=== PATIENT | male | born 1960 | race African-American/Black ===

== ENCOUNTER 2020-08-05 11:50 | Outpatient (CLI) | payer MEDICARE ==
[~2020-08-05 11:50] MED LIST: Magnevist 469MG/ML 20 ML VIAL ONE
--- NOTE | 2020-08-05 14:52 | PET ---
Exam: PET scan with CT attenuation correction HISTORY: Malignant neoplasm of the left upper lobe bronchus. COMPARISON: None. CORRELATION: Soft tissue neck CT 07/10/2020. TECHNIQUE: PET scan with CT attenuation correction is performed from the base of the brain to the pro ximal thighs following the intravenous initiation 11.5 mg of [id number]. FINDINGS: Head and neck: Left neck: There is marked FDG avidity associated with a soft tissue mass identified in the left neck on recent CT. Maximum SUV is 19.6. No additional areas of abnormal FDG localization in the upper to mid left neck, or the right neck. Chest: Hypermetabolic right paratracheal lymph node with a maximum SUV of 12.3. Hypermetabolic anteri or left mediastinal lymph node with a maximum SUV of 9.5. There appears to be marked FDG avidity involving the mid thoracic esophagus with a maximum SUV of 8.9 and 16.5. No abnormal FDG avidity in the axilla. Hypermetabolic activity involving the left upper lobe mass with a maximum SUV of 19.6. Additional hyp ermetabolic nodules in the left lung with a maximum SUV of 10.8, 6.7 and 10.1. Multiple FDG-avid nodules in the right lung. Hypermetabolic nodule in the right upper lobe with a maximum SUV of 7.5. R ight lower lobe with a maximum SUV of 5.3. Abdomen and pelvis: There is a hypermetabolic gastrohepatic lymph node with a maximum SUV of 3.8. Osseous structures: No evidence of abnormal FDG avidity. IMPRESSION: 1. Hypermetabolic left upper lobe mass with extensive intrathoracic and left neck metastases, as desc ribed above. 2. There is FDG avidity along the course of the esophagus. Correlate for a second neoplasm versus eso phagitis. There is a hypermetabolic gastrohepatic lymph node. Transcribed Date/Time: 08/05/2020 4:00 PM
--- NOTE | 2020-08-05 15:16 | MRI ---
MRI BRAIN WITH AND WITHOUT CONTRAST: DATE: 08/05/2020 HISTORY: 59-year-old male with metastatic lung cancer. Staging. COMPARISON: None TECHNIQUE: Multiplanar, multisequence MRI of the brain performed pre- and post-IV injection of gadolinium based contrast agent. FINDINGS: There is patchy hyperintense signal abnormality involving the majority of the volume of the stephen, lenka trally, with relative sparing of the periphery. No associated abnormal enhancement. This is nonspecific, but probably represents moderate to severe chronic ischemic white matter changes due to small vessel disease. There is a curvilinear band of hyperintense signal along the superior posterior edge of the left cere bellar hemisphere close to the tentorium cerebelli and just anterior to the left transverse dural venous sinus. There is no associated abnormal enhancement, no signal abnormality identified on T2 WI, no restricted diffusion, and no hemorrhage associated with this. This is slightly favored to be artifact. Multifocal small and tiny, and patchy T2 and FLAIR hyperintense signal abnormalities in the bilateral periventricular, deep, and subcortical white matter of the cerebrum, consistent with mild to moderate chronic ischemic white matter changes and tiny old white matter lacunar infarctions. A cluster of several very small fluid signal intensity lesions at head of left caudate nucleus and ad jacent portions of left basal ganglia and anterior limb of left internal capsule,, with hemosiderin staining. Multiple few tiny old lacunar infarctions in the bilateral thalami right basal ganglia, right externa l capsule. Small focal signal abnormality at cortex and subcortical white matter with hemosiderin stain, at the left far lateral suprasylvian brain parenchyma representing site of prior hemorrhage, at junction between foraminal and parietal lobes. No enhancing intra-axial lesion to indicate metastatic disease. Ossifications along interhemispheric falx. No obstructive hydrocephalus, mass effect, midline shift, or extra-axial fluid collection. No restricted diffusion. IMPRESSION: 1) no evidence of intracranial metastatic disease. 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 3) small old lacunar infarctions with prior hemorrhagic conversions, versus prior hemorrhagic lesions , at the left corpus striatum. 4) moderate chronic ischemic white matter changes, especially in the stephen. 5) small old hemorrhagic insult in left far lateral cerebrum.
== END 2020-08-05 11:51 | disposition home or self-care (01) ==
LOC: PET 11:50
PROVIDERS: ATTEND Internal Medicine Hematology & Oncology
DX: C34.12 Malignant neoplasm of upper lobe, left bronchus or lung (principal); R59.0 Localized enlarged lymph nodes; R93.3 Abnormal findings on diagnostic imaging of other parts of digestive tract; C79.89 Secondary malignant neoplasm of other specified sites; I63.81 Other cerebral infarction due to occlusion or stenosis of small artery
CPT/HCPCS: 70553; 78815; A9552; A9579

== ENCOUNTER 2020-08-14 07:47 | Outpatient (CLI) | payer MEDICARE ==
[2020-08-14 14:25] LABS: Anion Gap 15 mmol/L (10-20); BUN (Urea Nitrogen) 12 mg/dL (8.4-25.7); Calc. Creatinine Clearance 0 mL/min (70-130); Calcium 10.4 mg/dL (7.8-10.44); Carbon Dioxide 27 mmol/L (22-29); Chloride 102 mmol/L (98-107); Glucose 110 mg/dL (70-105); Potassium 4.6 mmol/L (3.5-5.1); Sodium 139 mmol/L (136-145)
[2020-08-14 14:27] LABS: #Basophils 0.1 10x3/uL (0.0-0.2); #Eosinphils 0.1 10x3/uL (0.0-0.5); #Monocytes 0.7 10x3/uL (0.0-1.1); #Neutrophils 6.3 10x3/uL (1.5-8.4); %Basophils 0.7 % (0.0-2.0); %Eosinophils 1.4 % (0.0-6.0); %Lymphocytes 15.7 % (18.0-47.0); %Monocytes 7.9 % (0.0-10.0); %Neutrophils 73.9 % (40.0-75.0); Mean Corpuscular HGB CONC 29.2 G/DL (32.0-36.0); Mean Corpuscular Hemoglobin 19.3 PG (27.0-33.0); Mean Corpuscular Volume 65.9 fl (80.0-100.0); Mean Platelet Volume 9.3 fl (7.4-10.4); Platelet Count 375 10x3/uL (130-400); RBC Distribution Width 18.6 % (11.5-14.5); Red Blood Cell (RBC) Count 5.19 10x6/uL (4.40-5.80); White Blood Cell (WBC) Count 8.5 10x3/uL (4.5-11.0)
[2020-08-14 14:55] LABS: Anisocytosis SLIGHT = 6-15 cells (100X) (0-5/hpf); Hypochromia MODERATE=16-30 cells (100X) (0-5/hpf); Microcytosis MODERATE=15-30 cells (100X) (0-5/hpf)
[2020-08-14 14:57] LABS: Ovalocytes SLIGHT = 2-5 cells (100X) (0-1/hpf)
[2020-08-14 14:59] LABS: Platelet Morphology Comment Appears Adequate; Reflex for Review?? YES
[2020-08-14 23:47] LABS: SARS-CoV-2 MS2 Positive; SARS-CoV-2 N Gene Negative; SARS-CoV-2 S Gene Negative; SARS-CoV-2 by NAA Not Detected (NotDetected); SARS-CoV-2 orf1ab Negative
== END 2020-08-14 07:48 | disposition home or self-care (01) ==
LOC: LABBT 07:47
PROVIDERS: ATTEND Specialist
DX: Z01.818 Encounter for other preprocedural examination (principal); C34.92 Malignant neoplasm of unspecified part of left bronchus or lung; Z20.828 Contact with and (suspected) exposure to other viral communicable diseases
CPT/HCPCS: 80048; 85025; 93005; U0003; 85060; 87635; 93010

== ENCOUNTER 2020-08-19 05:57 | Day surgery (SDC) | payer MEDICARE ==
[2020-08-18 08:14] VITALS: BMI 19.1
[2020-08-19] MEDS ORDERED: Ketorolac Tromethamine 30 MG/ML VIAL ONE (06:31)
[2020-08-19] MEDS ORDERED: Acetaminophen 500 MG TAB ONE (06:31)
[2020-08-19] MEDS ORDERED: Lidocaine 1% w/Epinephrine 1:100K 20 ML VIAL ONE (06:36)
[2020-08-19] MEDS ORDERED: Bupivacaine 0.25% HCL 30 ML VIAL ONE (06:36)
[2020-08-19] MEDS ORDERED: Fentanyl 100 MCG/2 ML VIAL ONE (07:15)
[2020-08-19] MEDS ORDERED: Midazolam HCl 2 mg/2 ml Vial ONE (07:15)
[2020-08-19] MEDS ORDERED: Propofol 500 MG/50 ML VIAL ONE (07:15)
--- NOTE | 2020-08-19 10:03 | RAD ---
CHEST 1 VIEW: Date: 08/19/2020 INDICATION: History of MediPort placement. COMPARISON: Prior PET/CT dated 08/05/2020. FINDINGS: There are bilateral pulmonary metastatic lesions, the largest within the left lung apex. There is a r ight subclavian chest wall port. No pneumothorax is evident. No acute osseous abnormality is evident. IMPRESSION: 1. New right subclavian chest wall port. No pneumothorax demonstrated. 2. Stable bilateral pulmonary metastatic disease. POS: AH
--- NOTE | 2020-08-19 12:25 | OP ---
DATE OF PROCEDURE: 08/19/2020 PREOPERATIVE DIAGNOSIS: Metastatic squamous cell carcinoma of the lung. POSTOPERATIVE DIAGNOSIS: Metastatic squamous cell carcinoma of the lung. OPERATION PERFORMED: Placement of a right subclavian low-profile power compatible MediPort. ANESTHESIA: Total intravenous anesthesia with local using a mixture of 1% lidocaine with epinephrine and 0.25% Marcaine. INDICATIONS: The patient is a 59-year-old black male. He was diagnosed with squamous cell carcinoma of his lung. He has metastatic disease to his neck with a large mass protruding from his neck. Chemotherapy has been recommended. MediPort is placed for this purpose today. DESCRIPTION OF OPERATION: Informed consent was obtained. The patient was taken to the operating room where total intravenous anesthesia was obtained with the patient in supine position. Periclavicular area was prepped with ChloraPrep and draped in sterile fashion. Local anesthetic was infiltrated and a large-gauge needle was passed under the clavicle in the subclavian vein. Guidewire was passed through the needle and fluoroscopically confirmed to enter the superior vena cava. Additional local anesthetic was infiltrated and transverse incision was created based on needle insertion site. A subcutaneous pocket was dissected inferiorly. Introducer dilator was passed over the guidewire under fluoroscopic guidance. The guidewire and dilator were removed, and the catheter was passed through the introducer. The tip of the catheter was positioned at the atriocaval junction and the catheter was trimmed to the appropriate length and secured to the locking hub of the MediPort. The port was then placed in the subcutaneous pocket where it was secured to the pectoral fascia with 2 interrupted sutures of 3-0 Prolene. The incision was then closed in layers with 3-0 and 4-0 Monocryl. Additional local anesthetic was infiltrated. The port was cannulated with a Daugherty needle and it aspirated blood freely and was flushed with heparinized saline. Dermabond was placed externally on the skin incision. There were no complications. Blood loss was negligible. The patient tolerated the procedure well and was taken to recovery room in stable condition. FINDINGS: I decided to place a low-profile port secondary to his body habitus. Fluoroscopy was used throughout the procedure. There was essentially no blood loss. No complications. The patient tolerated the procedure well and postprocedure chest x-ray was unremarkable. Job ID: [id number]
== END 2020-08-19 10:40 | disposition home or self-care (01) ==
LOC: SDC 05:57
PROVIDERS: ATTEND Specialist
PROC: 0JH60WZ Insertion of Totally Implantable Vascular Access Device into Chest Subcutaneous Tissue and Fascia, Open Approach (ICD-10-PCS; principal; 2020-08-19)
PROC: 02HV33Z Insertion of Infusion Device into Superior Vena Cava, Percutaneous Approach (ICD-10-PCS; 2020-08-19)
DX: C34.92 Malignant neoplasm of unspecified part of left bronchus or lung (principal); C79.89 Secondary malignant neoplasm of other specified sites; E11.9 Type 2 diabetes mellitus without complications; I10 Essential (primary) hypertension; F32.9 Major depressive disorder, single episode, unspecified; E03.9 Hypothyroidism, unspecified; H54.8 Legal blindness, as defined in USA; F17.210 Nicotine dependence, cigarettes, uncomplicated; Z79.84 Long term (current) use of oral hypoglycemic drugs; Z79.899 Other long term (current) drug therapy
CPT/HCPCS: 71045; C1788; J0690; J1642; J1885; J2250; J2704; J3010; S0020

== ENCOUNTER 2020-09-11 07:44 | Outpatient (CLI) | payer MEDICARE ==
[2020-09-12 02:57] LABS: SARS-CoV-2 MS2 Positive; SARS-CoV-2 N Gene Negative; SARS-CoV-2 S Gene Negative; SARS-CoV-2 by NAA Not Detected (NotDetected); SARS-CoV-2 orf1ab Negative
== END 2020-09-11 07:45 | disposition home or self-care (01) ==
LOC: LABBT 07:44
PROVIDERS: ATTEND Internal Medicine Gastroenterology
DX: Z01.812 Encounter for preprocedural laboratory examination (principal); C34.90 Malignant neoplasm of unspecified part of unspecified bronchus or lung; D50.9 Iron deficiency anemia, unspecified; R93.89 Abnormal findings on diagnostic imaging of other specified body structures; Z20.822 Contact with and (suspected) exposure to COVID-19
CPT/HCPCS: U0003; U0005; 87635

== ENCOUNTER 2020-09-16 08:18 | Day surgery (SDC) | payer MEDICARE, OTHER ==
[2020-09-15 09:15] VITALS: BMI 18.8
[2020-09-16] MEDS ORDERED: PROPOFOL 200 MG/20 ML VIAL ONE (08:50)
--- NOTE | 2020-09-16 12:03 | OP ---
DATE OF PROCEDURE: 09/16/2020 PROCEDURES PERFORMED: Esophagogastroduodenoscopy with biopsy and colonoscopy with snare polypectomy. PREOPERATIVE DIAGNOSES: Abnormal PET scan showing esophageal lesion and iron deficiency anemia. DESCRIPTION OF PROCEDURE: Informed consent was obtained from the patient. He was sedated with total intravenous anesthesia. The bite block was placed, and the endoscope was advanced easily to the second portion of the duodenum, and retroflexion was performed in the stomach. The esophagus had a mass extending from 25 cm from the incisors to 34 cm from the incisors. This appears to a rise from the squamous mucosa of the proximal to mid esophagus. The distal esophagus and GE junction were normal. The stomach was normal including retroflexed views. The pylorus and first and second portions of the duodenum were normal. The patient was turned around. Rectal exam was performed and was normal. The colonoscope was advanced to the cecum, where the ileocecal valve and appendiceal orifice were clearly identified. I removed a 6 mm sessile polyp from the cecum by snare cautery polypectomy. I removed a 12 mm pedunculated polyp from the sigmoid colon at 28 cm. There was a 5 mm polyp removed by snare cautery polypectomy right next to that pedunculated polyp at the same level in the sigmoid. The remainder of the colonic mucosa was normal except for diverticulosis throughout the colon. Retroflexed views in the rectum were unremarkable. IMPRESSION: 1. Esophageal mass from 25 to 34 cm arising from the squamous mucosa of the proximal to the mid esophagus. 2. Otherwise normal EGD. 3. 6 mm cecum polyp. 4. 12 mm pedunculated polyp in the sigmoid. 5. 5 mm sessile sigmoid polyp. 6. Diverticulosis throughout the colon, severe. RECOMMENDATIONS: 1. Await histopathology. 2. Follow up with Oncology. Job ID: [id number]
== END 2020-09-16 12:40 | disposition home or self-care (01) ==
LOC: SDC 08:18
PROVIDERS: ATTEND Internal Medicine Gastroenterology
PROC: 0DBH8ZZ Excision of Cecum, Via Natural or Artificial Opening Endoscopic (ICD-10-PCS; principal; 2020-09-16)
PROC: 0DBN8ZZ Excision of Sigmoid Colon, Via Natural or Artificial Opening Endoscopic (ICD-10-PCS; 2020-09-16)
PROC: 0DB58ZX Excision of Esophagus, Via Natural or Artificial Opening Endoscopic, Diagnostic (ICD-10-PCS; 2020-09-16)
DX: D12.5 Benign neoplasm of sigmoid colon (principal); K63.5 Polyp of colon; D50.9 Iron deficiency anemia, unspecified; K57.30 Diverticulosis of large intestine without perforation or abscess without bleeding; K22.9 Disease of esophagus, unspecified; F32.9 Major depressive disorder, single episode, unspecified; E11.9 Type 2 diabetes mellitus without complications; E78.5 Hyperlipidemia, unspecified; I10 Essential (primary) hypertension; F17.200 Nicotine dependence, unspecified, uncomplicated; C34.90 Malignant neoplasm of unspecified part of unspecified bronchus or lung; Z79.84 Long term (current) use of oral hypoglycemic drugs; Z79.899 Other long term (current) drug therapy
CPT/HCPCS: 88305; J2704

== ENCOUNTER 2020-09-30 10:30 | Day surgery (SDC) | payer MEDICARE, OTHER ==
[~2020-09-30 10:30] MED LIST changes: +DEXTROSE 5% IVPB SCH; +Dexamethasone 10 MG in Sodium Chloride 0.9% 50 ML IVPB SCH; +FLUOROURACIL IVPB SCH; +Ferumoxytol (ERSD) 510 MG in Sodium Chloride 0.9% 250 ML 150 ML IVPB SCH; -Magnevist 469MG/ML 20 ML VIAL ONE; +OXALIPLATIN IVPB SCH; +PALONOSETRON HCL 0.05 MG/ML 5 ML VIAL IVP SCH; +Palonosetron HCl 0.25 MG in Sodium Chloride 0.9% 50 ML IVPB SCH; +SODIUM CHLORIDE 0.9% IVPB SCH; +Sodium Chloride 0.9% 1,000 ML IV SCH; +WATER IVPB SCH; +Zoledronic Acid 4 MG in Sodium Chloride 0.9% 100 ML IVPB SCH
[2020-09-30 11:06] VITALS: BP 135/74; TEMP 98.1
[2020-09-30] MEDS ORDERED: Sodium Chloride 0.9% 30 ML ONE (11:56)
== END 2020-09-30 15:23 | disposition home or self-care (01) ==
LOC: ONC/OP 10:30
PROVIDERS: ATTEND Internal Medicine Hematology & Oncology
DX: Z51.11 Encounter for antineoplastic chemotherapy (principal); C34.12 Malignant neoplasm of upper lobe, left bronchus or lung; C15.3 Malignant neoplasm of upper third of esophagus; E83.52 Hypercalcemia
CPT/HCPCS: 96361; 96367; 96375; 96413; 96415; 96417; J1100; J2469; J3489; J3490; J7050; J7070; J9190; J9263; Q0139

== ENCOUNTER 2020-10-03 10:52 | Day surgery (SDC) | payer MEDICARE, OTHER ==
[~2020-10-03 10:52] MED LIST changes: -DEXTROSE 5% IVPB SCH; -Dexamethasone 10 MG in Sodium Chloride 0.9% 50 ML IVPB SCH; -FLUOROURACIL IVPB SCH; -Ferumoxytol (ERSD) 510 MG in Sodium Chloride 0.9% 250 ML 150 ML IVPB SCH; +Ferumoxytol (NON ERSD) 510 MG in Sodium Chloride 0.9% 250 ML 150 ML IVPB SCH; -OXALIPLATIN IVPB SCH; -PALONOSETRON HCL 0.05 MG/ML 5 ML VIAL IVP SCH; -Palonosetron HCl 0.25 MG in Sodium Chloride 0.9% 50 ML IVPB SCH; -SODIUM CHLORIDE 0.9% IVPB SCH; -Sodium Chloride 0.9% 1,000 ML IV SCH; -WATER IVPB SCH; -Zoledronic Acid 4 MG in Sodium Chloride 0.9% 100 ML IVPB SCH
[2020-10-03 13:18] VITALS: BP 117/64; TEMP 98.7
== END 2020-10-03 14:07 | disposition home or self-care (01) ==
LOC: ONC/OP 10:52
PROVIDERS: ATTEND Internal Medicine Hematology & Oncology
DX: Z51.11 Encounter for antineoplastic chemotherapy (principal); C34.12 Malignant neoplasm of upper lobe, left bronchus or lung; C15.3 Malignant neoplasm of upper third of esophagus; D50.0 Iron deficiency anemia secondary to blood loss (chronic); D63.8 Anemia in other chronic diseases classified elsewhere
CPT/HCPCS: 12041; 36415; 80053; 85025; 85610; 85730; 86850; 86900; 86901; 96365; 99212; G0463; J7050; Q0138

== ENCOUNTER 2020-10-03 11:17 | Emergency (ER) | payer MEDICARE, OTHER ==
[2020-10-03 12:01] LABS: #Eosinphils 0.1 thou/uL (0.0-0.7); #Lymphocytes 1.3 thou/uL (1.20-3.40); #Monocytes 0.2 thou/uL (0.11-0.59); #Neutrophils 12.5 thou/uL (1.40-6.50); %Basophils 0.2 % (0.0-1.0); %Eosinophils 0.5 % (0.0-10.0); %Lymphocytes 9.4 % (21.0-51.0); %Monocytes 1.5 % (0.0-10.0); %Neutrophils 88.4 % (42.0-75.0); Mean Corpuscular HGB CONC 30.4 g/dL (32.0-36.0); Mean Corpuscular Hemoglobin 20.1 pg (27.0-31.0); Mean Platelet Volume 9.8 fL (7.4-10.4); Platelet Count 385 thou/uL (130-400); RBC Distribution Width 17.8 % (11.5-14.5); Red Blood Cell (RBC) Count 4.49 mill/uL (4.70-6.10); White Blood Cell (WBC) Count 14.2 thou/uL (4.8-10.8)
[2020-10-03 12:09] LABS: INR-International Normal Ratio 0.9; Prothrombin Time 12.7 sec (12.0-14.7)
[2020-10-03 12:27] LABS: ALT (SGPT) Less than 7 U/L (8-55); AST (SGOT) 7 U/L (5-34); Albumin 3.3 g/dL (3.5-5.0); Alkaline Phosphatase 113 U/L (40-110); Anion Gap 14 mmol/L (10-20); BUN (Urea Nitrogen) 15 mg/dL (8.4-25.7); Bilirubin, Total 0.2 mg/dL (0.2-1.2); Calc. Creatinine Clearance 0 mL/min (70-130); Calcium 9.1 mg/dL (7.8-10.44); Carbon Dioxide 25 mmol/L (22-29); Chloride 98 mmol/L (98-107); Globulin 4.5 g/dL (2.4-3.5); Glucose 363 mg/dL (70-105); Potassium 3.4 mmol/L (3.5-5.1); Protein, Total 7.8 g/dL (6.0-8.3); Sodium 134 mmol/L (136-145)
== END 2020-10-03 12:55 | disposition home or self-care (01) ==
LOC: ERS 11:17
DX: D49.89 Neoplasm of unspecified behavior of other specified sites (principal); D64.9 Anemia, unspecified; C34.90 Malignant neoplasm of unspecified part of unspecified bronchus or lung; E11.9 Type 2 diabetes mellitus without complications; E03.9 Hypothyroidism, unspecified; E78.5 Hyperlipidemia, unspecified; E78.00 Pure hypercholesterolemia, unspecified; Z87.891 Personal history of nicotine dependence
CPT/HCPCS: 36415; 80053; 85025; 85610; 85730; 86850; 86900; 86901

== ENCOUNTER 2020-10-06 10:26 | Day surgery (SDC) | payer MEDICARE ==
[~2020-10-06 10:26] MED LIST changes: +Ferumoxytol (NON ERSD) 510 MG in Sodium Chloride 0.9% 150 ML IVPB SCH; -Ferumoxytol (NON ERSD) 510 MG in Sodium Chloride 0.9% 250 ML 150 ML IVPB SCH
[2020-10-06] MEDS ORDERED: Sodium Chloride 0.9% 20 ML ONE (10:30)
[2020-10-06 10:36] VITALS: BP 108/68; TEMP 98.1
== END 2020-10-06 11:29 | disposition home or self-care (01) ==
LOC: ONC/OP 10:26
PROVIDERS: ATTEND Internal Medicine Hematology & Oncology
DX: D50.0 Iron deficiency anemia secondary to blood loss (chronic) (principal); C34.12 Malignant neoplasm of upper lobe, left bronchus or lung; C15.3 Malignant neoplasm of upper third of esophagus; E83.52 Hypercalcemia
CPT/HCPCS: 96365; J1642; J3490; Q0138

== ENCOUNTER 2020-10-22 10:30 | Day surgery (SDC) | payer MEDICARE ==
[~2020-10-22 10:30] MED LIST changes: +DEXTROSE 5% IVPB SCH; +FLUOROURACIL IVPB SCH; -Ferumoxytol (NON ERSD) 510 MG in Sodium Chloride 0.9% 150 ML IVPB SCH; +OXALIPLATIN IVPB SCH; +PALONOSETRON HCL 0.05 MG/ML 5 ML VIAL IVP SCH; +Palonosetron HCl 0.25 MG in Sodium Chloride 0.9% 50 ML IVPB SCH; +Pembrolizumab 400 MG in Sodium Chloride 0.9% 250 ML 250 ML IV SCH; +WATER IVPB SCH
[2020-10-22] MEDS ORDERED: Sodium Chloride 0.9% 20 ML ONE (11:16)
[2020-10-22 12:07] VITALS: BP 104/62; TEMP 98.7
== END 2020-10-22 14:55 | disposition home or self-care (01) ==
LOC: ONC/OP 10:30
PROVIDERS: ATTEND Internal Medicine Hematology & Oncology
DX: Z51.11 Encounter for antineoplastic chemotherapy (principal); C15.3 Malignant neoplasm of upper third of esophagus; C34.12 Malignant neoplasm of upper lobe, left bronchus or lung; D50.0 Iron deficiency anemia secondary to blood loss (chronic); E83.52 Hypercalcemia
CPT/HCPCS: 96375; 96413; 96415; 96416; 96417; J1100; J2469; J7070; J9190; J9263

== ENCOUNTER 2020-11-04 10:58 | Day surgery (SDC) | payer MEDICARE ==
[~2020-11-04 10:58] MED LIST changes: -Pembrolizumab 400 MG in Sodium Chloride 0.9% 250 ML 250 ML IV SCH
[2020-11-04] MEDS ORDERED: Sodium Chloride 0.9% 20 ML ONE (11:01)
[2020-11-04 11:18] VITALS: BP 132/72; TEMP 98.5
== END 2020-11-04 15:42 | disposition home or self-care (01) ==
LOC: ONC/OP 10:58
PROVIDERS: ATTEND Internal Medicine Hematology & Oncology
DX: Z51.11 Encounter for antineoplastic chemotherapy (principal); C15.3 Malignant neoplasm of upper third of esophagus; C34.12 Malignant neoplasm of upper lobe, left bronchus or lung; D50.0 Iron deficiency anemia secondary to blood loss (chronic); E83.52 Hypercalcemia
CPT/HCPCS: 96375; 96413; 96415; 96417; J1100; J2469; J7070; J9190; J9263

== ENCOUNTER 2020-11-18 09:10 | Emergency (ER) | payer MEDICARE ==
[2020-11-18 10:08] LABS: #Eosinphils 0.1 thou/uL (0.0-0.7); #Lymphocytes 1.5 thou/uL (1.20-3.40); #Monocytes 1.1 thou/uL (0.11-0.59); #Neutrophils 11.2 thou/uL (1.40-6.50); %Basophils 0.2 % (0.0-1.0); %Eosinophils 0.6 % (0.0-10.0); %Lymphocytes 10.5 % (21.0-51.0); %Neutrophils 80.7 % (42.0-75.0); Hemoglobin 8.2 g/dL (14.0-18.0); INR-International Normal Ratio 0.9; Mean Corpuscular HGB CONC 28.8 g/dL (32.0-36.0); Mean Corpuscular Hemoglobin 20.5 pg (27.0-31.0); Mean Corpuscular Volume 71.3 fL (78.0-98.0); Mean Platelet Volume 9.1 fL (7.4-10.4); Platelet Count 375 thou/uL (130-400); Prothrombin Time 12.6 sec (12.0-14.7); RBC Distribution Width 21.6 % (11.5-14.5); Red Blood Cell (RBC) Count 3.98 mill/uL (4.70-6.10); White Blood Cell (WBC) Count 13.9 thou/uL (4.8-10.8)
[2020-11-18 10:09] LABS: PTT 29.9 sec (22.9-36.1)
[2020-11-18 10:21] LABS: ALT (SGPT) Less than 7 U/L (8-55); AST (SGOT) 8 U/L (5-34); Albumin 3.3 g/dL (3.5-5.0); Alkaline Phosphatase 106 U/L (40-110); Anion Gap 16 mmol/L (10-20); BUN (Urea Nitrogen) 7 mg/dL (8.4-25.7); Bilirubin, Total 0.3 mg/dL (0.2-1.2); Calc. Creatinine Clearance 0 mL/min (70-130); Calcium 9.1 mg/dL (7.8-10.44); Carbon Dioxide 24 mmol/L (22-29); Chloride 102 mmol/L (98-107); Glucose 255 mg/dL (70-105); Potassium 4.6 mmol/L (3.5-5.1); Protein, Total 7.3 g/dL (6.0-8.3); Sodium 137 mmol/L (136-145)
[2020-11-18 10:43] LABS: Hypochromia SLIGHT = 6-15 cells (100X) (0-5/hpf); MDiff Complete? YES; Microcytosis MODERATE=15-30 cells (100X) (0-5/hpf); Platelet Morphology Comment Appears Adequate; Polychromasia SLIGHT = 2-3 cells (100X) (0-2/hpf)
== END 2020-11-18 11:25 | disposition home or self-care (01) ==
LOC: ERS 09:10
DX: D50.9 Iron deficiency anemia, unspecified (principal); R58 Hemorrhage, not elsewhere classified; E11.9 Type 2 diabetes mellitus without complications; E03.9 Hypothyroidism, unspecified; E78.5 Hyperlipidemia, unspecified; E78.00 Pure hypercholesterolemia, unspecified; Z87.891 Personal history of nicotine dependence; Z79.84 Long term (current) use of oral hypoglycemic drugs
CPT/HCPCS: 36415; 80053; 85025; 85610; 85730; 99283

== ENCOUNTER 2020-11-21 01:35 | Inpatient (IN) | payer MEDICARE ==
[2020-11-21] MEDS ORDERED: Dextrose 50% Abboject 50 ML SYRINGE SLOW IVP PRN (02:32)
[2020-11-21] MEDS ORDERED: Dextrose 5% in Water 1,000 ML IV PRN (02:32)
[2020-11-21] MEDS ORDERED: hydrALAZINE 20 MG/ML VIAL SLOW IVP PRN (03:15)
[2020-11-21 03:34] VITALS: BMI 17.6
[2020-11-21 05:29] LABS: SARS-CoV-2 PCR by NAA Not Detected (NotDetected)
[2020-11-21 06:20] LABS: #Eosinphils 0.1 thou/uL (0.0-0.7); #Neutrophils 10.5 thou/uL (1.40-6.50); %Basophils 0.2 % (0.0-1.0); %Eosinophils 0.5 % (0.0-10.0); %Lymphocytes 7.7 % (21.0-51.0); %Monocytes 8.1 % (0.0-10.0); %Neutrophils 83.6 % (42.0-75.0); Hemoglobin 8.5 g/dL (14.0-18.0); Mean Corpuscular HGB CONC 30.5 g/dL (32.0-36.0); Mean Corpuscular Hemoglobin 22.5 pg (27.0-31.0); Mean Corpuscular Volume 73.9 fL (78.0-98.0); Mean Platelet Volume 9.2 fL (7.4-10.4); Platelet Count 386 thou/uL (130-400); RBC Distribution Width 21.7 % (11.5-14.5); Red Blood Cell (RBC) Count 3.77 mill/uL (4.70-6.10); White Blood Cell (WBC) Count 12.6 thou/uL (4.8-10.8)
[2020-11-21 06:45] LABS: Anion Gap 14 mmol/L (10-20); BUN (Urea Nitrogen) 4 mg/dL (8.4-25.7); Calc. Creatinine Clearance 93 mL/min (70-130); Calcium 8.7 mg/dL (7.8-10.44); Carbon Dioxide 21 mmol/L (22-29); Chloride 104 mmol/L (98-107); Glucose 160 mg/dL (70-105); Potassium 4.4 mmol/L (3.5-5.1); Sodium 135 mmol/L (136-145)
[2020-11-21] MEDS: Acetaminophen 325 MG TAB PO PRN ×2 (08:55→23:05)
[2020-11-21] MEDS ORDERED: FLU VACC QS2020-21(6MOS UP)/PF 60 MCG/0.5 ML SYRINGE IM ONE (09:00)
[2020-11-21] MEDS: HumaLOG 300 UNITS/3 ML VIAL SC PRN ×3 (12:10→23:07)
[2020-11-22] MEDS: HumaLOG 300 UNITS/3 ML VIAL SC PRN ×3 (06:04→16:00)
[2020-11-22 07:12] LABS: Phosphorus 2.5 mg/dL (2.3-4.7)
[2020-11-22 07:14] LABS: Anion Gap 11 mmol/L (10-20); BUN (Urea Nitrogen) 4 mg/dL (8.4-25.7); Calc. Creatinine Clearance 93 mL/min (70-130); Calcium 9.4 mg/dL (7.8-10.44); Carbon Dioxide 26 mmol/L (22-29); Chloride 103 mmol/L (98-107); Glucose 198 mg/dL (70-105); Magnesium 1.9 mg/dL (1.6-2.6); Potassium 3.4 mmol/L (3.5-5.1); Sodium 137 mmol/L (136-145)
[2020-11-22 08:16] LABS: #Eosinphils 0.1 thou/uL (0.0-0.7); #Lymphocytes 1.5 thou/uL (1.20-3.40); #Monocytes 1.2 thou/uL (0.11-0.59); #Neutrophils 9.9 thou/uL (1.40-6.50); %Basophils 0.4 % (0.0-1.0); %Eosinophils 0.5 % (0.0-10.0); %Lymphocytes 12.1 % (21.0-51.0); %Monocytes 9.2 % (0.0-10.0); %Neutrophils 77.8 % (42.0-75.0); Hemoglobin 7.9 g/dL (14.0-18.0); Hypochromia SLIGHT = 6-15 cells (100X) (0-5/hpf); MDiff Complete? YES; Mean Corpuscular HGB CONC 29.6 g/dL (32.0-36.0); Mean Corpuscular Hemoglobin 21.8 pg (27.0-31.0); Mean Corpuscular Volume 73.8 fL (78.0-98.0); Mean Platelet Volume 8.5 fL (7.4-10.4); Microcytosis SLIGHT = 6-15 cells (100X) (0-5/hpf); Platelet Count 404 thou/uL (130-400); Poikilocytosis SLIGHT = 6-15 cells (100X) (0-5/hpf); RBC Distribution Width 21.6 % (11.5-14.5); Red Blood Cell (RBC) Count 3.64 mill/uL (4.70-6.10); White Blood Cell (WBC) Count 12.7 thou/uL (4.8-10.8)
[2020-11-22] MEDS ORDERED: Potassium Chloride 20 MEQ TAB PO SCH (09:00)
[2020-11-22] MEDS: FLUoxetine HCl 20 MG CAP PO SCH (09:49)
[2020-11-22] MEDS: metFORMIN 500 MG TAB PO SCH ×2 (09:49→20:27)
[2020-11-22] MEDS: Ferrous Sulfate 325 MG TAB PO SCH (09:49)
[2020-11-22] MEDS: Methimazole 5 MG TAB PO SCH (09:50)
[2020-11-22] MEDS: Empagliflozin 10 MG TAB PO SCH (09:50)
[2020-11-22] MEDS: Sodium Chloride 0.9% 1,000 ML IV SCH (15:56)
[2020-11-22] MEDS: Potassium Chloride 20 MEQ TAB PO SCH (17:50)
[2020-11-22] MEDS: Atorvastatin Calcium 40 MG TAB PO SCH (20:27)
[2020-11-23 03:58] LABS: #Eosinphils 0.1 thou/uL (0.0-0.7); #Lymphocytes 1.7 thou/uL (1.20-3.40); #Monocytes 1.3 thou/uL (0.11-0.59); #Neutrophils 9.6 thou/uL (1.40-6.50); %Basophils 0.3 % (0.0-1.0); %Eosinophils 0.5 % (0.0-10.0); %Lymphocytes 13.2 % (21.0-51.0); %Monocytes 10.3 % (0.0-10.0); %Neutrophils 75.7 % (42.0-75.0); Hemoglobin 7.5 g/dL (14.0-18.0); Mean Corpuscular HGB CONC 30.7 g/dL (32.0-36.0); Mean Corpuscular Hemoglobin 22.6 pg (27.0-31.0); Mean Corpuscular Volume 73.5 fL (78.0-98.0); Mean Platelet Volume 8.7 fL (7.4-10.4); Platelet Count 392 thou/uL (130-400); RBC Distribution Width 21.8 % (11.5-14.5); White Blood Cell (WBC) Count 12.7 thou/uL (4.8-10.8)
[2020-11-23 04:20] LABS: Anion Gap 12 mmol/L (10-20); BUN (Urea Nitrogen) 6 mg/dL (8.4-25.7); Calc. Creatinine Clearance 80 mL/min (70-130); Calcium 9.5 mg/dL (7.8-10.44); Carbon Dioxide 24 mmol/L (22-29); Chloride 105 mmol/L (98-107); Glucose 195 mg/dL (70-105); Potassium 4.1 mmol/L (3.5-5.1); Sodium 137 mmol/L (136-145)
[2020-11-23] MEDS: Sodium Chloride 0.9% 1,000 ML IV SCH ×3 (06:10→20:25)
[2020-11-23] MEDS: HumaLOG 300 UNITS/3 ML VIAL SC PRN ×2 (06:13→22:16)
[2020-11-23] MEDS: Empagliflozin 10 MG TAB PO SCH (08:16)
[2020-11-23] MEDS: metFORMIN 500 MG TAB PO SCH ×2 (08:16→20:12)
[2020-11-23] MEDS: Potassium Chloride 20 MEQ TAB PO SCH ×2 (08:16→17:19)
[2020-11-23] MEDS: Methimazole 5 MG TAB PO SCH (08:16)
[2020-11-23] MEDS: Acetaminophen 325 MG TAB PO PRN (08:16)
[2020-11-23] MEDS: FLUoxetine HCl 20 MG CAP PO SCH (08:16)
[2020-11-23 13:46] LABS: Platelet Count 395 thou/uL (130-400)
[2020-11-23] MEDS: Atorvastatin Calcium 40 MG TAB PO SCH (20:12)
[2020-11-24] MEDS: Acetaminophen 325 MG TAB PO PRN ×2 (04:53→08:14)
[2020-11-24 04:56] LABS: #Basophils 0.1 thou/uL (0.0-0.2); #Eosinphils 0.1 thou/uL (0.0-0.7); #Lymphocytes 1.1 thou/uL (1.20-3.40); #Monocytes 0.7 thou/uL (0.11-0.59); #Neutrophils 6.6 thou/uL (1.40-6.50); %Basophils 0.7 % (0.0-1.0); %Eosinophils 0.7 % (0.0-10.0); %Lymphocytes 12.5 % (21.0-51.0); %Monocytes 8.2 % (0.0-10.0); Hemoglobin 8.3 g/dL (14.0-18.0); Mean Corpuscular HGB CONC 31.8 g/dL (32.0-36.0); Mean Corpuscular Hemoglobin 24.1 pg (27.0-31.0); Mean Corpuscular Volume 75.9 fL (78.0-98.0); Platelet Count 376 thou/uL (130-400); RBC Distribution Width 21.9 % (11.5-14.5); Red Blood Cell (RBC) Count 3.42 mill/uL (4.70-6.10); White Blood Cell (WBC) Count 8.5 thou/uL (4.8-10.8)
[2020-11-24 05:15] LABS: Anion Gap 12 mmol/L (10-20); BUN (Urea Nitrogen) 7 mg/dL (8.4-25.7); Calc. Creatinine Clearance 90 mL/min (70-130); Calcium 9.8 mg/dL (7.8-10.44); Carbon Dioxide 26 mmol/L (22-29); Chloride 104 mmol/L (98-107); Glucose 142 mg/dL (70-105); Potassium 4.1 mmol/L (3.5-5.1); Sodium 138 mmol/L (136-145)
[2020-11-24] MEDS: FLUoxetine HCl 20 MG CAP PO SCH (08:13)
[2020-11-24] MEDS: Methimazole 5 MG TAB PO SCH (08:13)
[2020-11-24] MEDS: Multivit, Therapeutic 1 TAB PO SCH (08:13)
[2020-11-24] MEDS: Empagliflozin 10 MG TAB PO SCH (08:13)
[2020-11-24] MEDS: Ferrous Sulfate 325 MG TAB PO SCH (08:13)
[2020-11-24] MEDS: metFORMIN 500 MG TAB PO SCH ×2 (08:13→20:12)
[2020-11-24] MEDS ORDERED: Morphine 2 MG/ML VIAL SLOW IVP PRN (08:54)
[2020-11-24] MEDS ORDERED: Acetaminophen/Codeine 30-300mg Tablet PO PRN (08:54)
[2020-11-24] MEDS: HumaLOG 300 UNITS/3 ML VIAL SC PRN (16:52)
[2020-11-24] MEDS: Atorvastatin Calcium 40 MG TAB PO SCH (20:12)
[2020-11-25] MEDS: Sodium Chloride 0.9% 1,000 ML IV SCH (01:59)
[2020-11-25 06:01] LABS: #Eosinphils 0.1 thou/uL (0.0-0.7); #Lymphocytes 1.7 thou/uL (1.20-3.40); #Monocytes 1.1 thou/uL (0.11-0.59); #Neutrophils 11.7 thou/uL (1.40-6.50); %Basophils 0.2 % (0.0-1.0); %Eosinophils 0.6 % (0.0-10.0); %Lymphocytes 11.9 % (21.0-51.0); %Monocytes 7.3 % (0.0-10.0); %Neutrophils 80.1 % (42.0-75.0); Mean Corpuscular HGB CONC 31.3 g/dL (32.0-36.0); Mean Corpuscular Hemoglobin 23.8 pg (27.0-31.0); Mean Corpuscular Volume 75.9 fL (78.0-98.0); Mean Platelet Volume 8.4 fL (7.4-10.4); Platelet Count 395 thou/uL (130-400); RBC Distribution Width 21.9 % (11.5-14.5); Red Blood Cell (RBC) Count 3.38 mill/uL (4.70-6.10); White Blood Cell (WBC) Count 14.7 thou/uL (4.8-10.8)
[2020-11-25 06:26] LABS: Anion Gap 12 mmol/L (10-20); BUN (Urea Nitrogen) 7 mg/dL (8.4-25.7); Calc. Creatinine Clearance 95 mL/min (70-130); Calcium 9.6 mg/dL (7.8-10.44); Carbon Dioxide 26 mmol/L (22-29); Chloride 106 mmol/L (98-107); Glucose 129 mg/dL (70-105); Potassium 4.1 mmol/L (3.5-5.1); Sodium 140 mmol/L (136-145)
[2020-11-25] MEDS: FLUoxetine HCl 20 MG CAP PO SCH (09:23)
[2020-11-25] MEDS: metFORMIN 500 MG TAB PO SCH ×2 (09:23→20:19)
[2020-11-25] MEDS: Empagliflozin 10 MG TAB PO SCH (09:23)
[2020-11-25] MEDS: Multivit, Therapeutic 1 TAB PO SCH (09:23)
[2020-11-25] MEDS: Methimazole 5 MG TAB PO SCH (09:23)
[2020-11-25] MEDS: Acetaminophen 325 MG TAB PO PRN (09:23)
[2020-11-25] MEDS: Atorvastatin Calcium 40 MG TAB PO SCH (20:19)
[2020-11-25] MEDS ORDERED: Loperamide HCl 2 MG CAP PO SCH (20:30)
[2020-11-26] MEDS: Sodium Chloride 0.9% 1,000 ML IV SCH (03:00)
[2020-11-26 07:06] LABS: Hemoglobin 8.1 g/dL (14.0-18.0)
[2020-11-26 08:40] VITALS: BP 110/64; TEMP 98.4
[2020-11-26] MEDS: Multivit, Therapeutic 1 TAB PO SCH (09:24)
[2020-11-26] MEDS: Methimazole 5 MG TAB PO SCH (09:24)
[2020-11-26] MEDS: FLUoxetine HCl 20 MG CAP PO SCH (09:24)
[2020-11-26] MEDS: Empagliflozin 10 MG TAB PO SCH (09:24)
[2020-11-26] MEDS: metFORMIN 500 MG TAB PO SCH (09:24)
[2020-11-26] MEDS: Ferrous Sulfate 325 MG TAB PO SCH (09:25)
== END 2020-11-26 16:30 | disposition home or self-care (01) | DRG 147 ==
LOC: SJJU 01:35 → INTOOBSV 01:35 → OBSVTOIN 15:34 → ONC 19:07
PROVIDERS: ADMIT Internal Medicine; ATTEND Internal Medicine
PROC: 30233N1 Transfusion of Nonautologous Red Blood Cells into Peripheral Vein, Percutaneous Approach (ICD-10-PCS; principal; 2020-11-23)
DX: C76.0 Malignant neoplasm of head, face and neck (principal); C77.9 Secondary and unspecified malignant neoplasm of lymph node, unspecified; C15.9 Malignant neoplasm of esophagus, unspecified; D62 Acute posthemorrhagic anemia; C78.00 Secondary malignant neoplasm of unspecified lung; E11.9 Type 2 diabetes mellitus without complications; D72.829 Elevated white blood cell count, unspecified; I10 Essential (primary) hypertension; E05.90 Thyrotoxicosis, unspecified without thyrotoxic crisis or storm; Z20.822 Contact with and (suspected) exposure to COVID-19; Z92.21 Personal history of antineoplastic chemotherapy; Z98.890 Other specified postprocedural states; Z87.891 Personal history of nicotine dependence; D50.9 Iron deficiency anemia, unspecified; R58 Hemorrhage, not elsewhere classified; E03.9 Hypothyroidism, unspecified; E78.5 Hyperlipidemia, unspecified; E78.00 Pure hypercholesterolemia, unspecified
CPT/HCPCS: 36415; 36416; 36430; 77014; 77280; 77290; 77307; 77334; 77412; 80048; 80053; 82274; 83735; 84100; 85014; 85018; 85025; 85610; 85730; 86850; 86900; 86901; 87635; 99283; G0378; J1642; J1815; J2270; P9016; U0003; U0005

== ENCOUNTER 2020-11-28 19:30 | Emergency (ER) | payer MEDICARE ==
[2020-11-28 19:59] LABS: Hemoglobin 8.1 g/dL (14.0-18.0); Mean Corpuscular HGB CONC 30.6 g/dL (32.0-36.0); Mean Corpuscular Hemoglobin 23.4 pg (27.0-31.0); Mean Corpuscular Volume 76.4 fL (78.0-98.0); Platelet Count 270 thou/uL (130-400); RBC Distribution Width 21.7 % (11.5-14.5); Red Blood Cell (RBC) Count 3.45 mill/uL (4.70-6.10); White Blood Cell (WBC) Count 18.2 thou/uL (4.8-10.8)
[2020-11-28 20:17] LABS: #Eosinphils 0.1 thou/uL (0.0-0.7); #Lymphocytes 1.2 thou/uL (1.20-3.40); #Monocytes 0.8 thou/uL (0.11-0.59); %Basophils 0.1 % (0.0-1.0); %Eosinophils 0.5 % (0.0-10.0); %Lymphocytes 6.4 % (21.0-51.0); %Monocytes 4.6 % (0.0-10.0); %Neutrophils 88.4 % (42.0-75.0); Hypochromia SLIGHT = 6-15 cells (100X) (0-5/hpf); MDiff Complete? YES; Platelet Morphology Comment Appears Adequate; Polychromasia SLIGHT = 2-3 cells (100X) (0-2/hpf); Target Cells SLIGHT = 2-5 cells (100X) (0-1/hpf)
[2020-11-28 20:33] LABS: ALT (SGPT) 7 U/L (8-55); AST (SGOT) 8 U/L (5-34); Albumin 3.2 g/dL (3.5-5.0); Alkaline Phosphatase 127 U/L (40-110); Anion Gap 14 mmol/L (10-20); BUN (Urea Nitrogen) 7 mg/dL (8.4-25.7); Bilirubin, Total 0.2 mg/dL (0.2-1.2); Calc. Creatinine Clearance 0 mL/min (70-130); Calcium 9.4 mg/dL (7.8-10.44); Carbon Dioxide 25 mmol/L (22-29); Chloride 103 mmol/L (98-107); Globulin 4.1 g/dL (2.4-3.5); Glucose 306 mg/dL (70-105); Potassium 4.2 mmol/L (3.5-5.1); Protein, Total 7.3 g/dL (6.0-8.3); Sodium 138 mmol/L (136-145)
== END 2020-11-28 21:42 | disposition home or self-care (01) ==
LOC: ERS 19:30
DX: R22.1 Localized swelling, mass and lump, neck (principal); E11.9 Type 2 diabetes mellitus without complications; I10 Essential (primary) hypertension; E03.9 Hypothyroidism, unspecified; E78.5 Hyperlipidemia, unspecified; Z87.891 Personal history of nicotine dependence
CPT/HCPCS: 36415; 80053; 85025; 96374; J1642

== ENCOUNTER 2020-12-02 08:56 | Inpatient (IN) | payer MEDICARE ==
[2020-12-02 17:58] VITALS: BMI 17.6
[2020-12-02] MEDS ORDERED: Dextrose 50% Abboject 50 ML SYRINGE SLOW IVP PRN (20:40)
[2020-12-02] MEDS ORDERED: Dextrose 5% in Water 1,000 ML IV PRN (20:40)
[2020-12-02] MEDS ORDERED: Morphine 4 MG/ML VIAL SLOW IVP PRN (21:22)
[2020-12-02] MEDS: Sodium Chloride 0.9% 1,000 ML IV SCH (21:36)
[2020-12-02] MEDS: Cefepime 2 GM in Sodium Chloride 0.9% 100 ML IVPB SCH (21:37)
[2020-12-02] MEDS: Vancomycin HCl 750 MG in Sodium Chloride 0.9% 250 ML 250 ML IVPB SCH (22:43)
[2020-12-02 22:47] LABS: Hemoglobin 8.5 g/dL (14.0-18.0)
[2020-12-03] MEDS: Acetaminophen 325 MG TAB PO PRN ×3 (03:38→20:11)
[2020-12-03 06:25] LABS: Band 8 % (5-11); Hemoglobin 7.5 g/dL (14.0-18.0); Hypochromia SLIGHT = 6-15 cells (100X) (0-5/hpf); Lymphocytes 5 % (21-51); MDiff Complete? YES; Mean Corpuscular HGB CONC 30.9 g/dL (32.0-36.0); Mean Corpuscular Hemoglobin 24.4 pg (27.0-31.0); Mean Corpuscular Volume 79.2 fL (78.0-98.0); Mean Platelet Volume 7.4 fL (7.4-10.4); Monocytes 1 % (0-10); Neutrophil 86 % (42-75); Platelet Count 397 thou/uL (130-400); Platelet Morphology Comment Appears Adequate; RBC Distribution Width 20.6 % (11.5-14.5); Red Blood Cell (RBC) Count 3.06 mill/uL (4.70-6.10); White Blood Cell (WBC) Count 21.3 thou/uL (4.8-10.8)
[2020-12-03 06:28] LABS: Anion Gap 11 mmol/L (10-20); BUN (Urea Nitrogen) 6 mg/dL (8.4-25.7); Calc. Creatinine Clearance 104 mL/min (70-130); Calcium 8.9 mg/dL (7.8-10.44); Carbon Dioxide 26 mmol/L (22-29); Chloride 107 mmol/L (98-107); Glucose 161 mg/dL (70-105); Potassium 3.6 mmol/L (3.5-5.1); Sodium 140 mmol/L (136-145)
[2020-12-03] MEDS: Sodium Chloride 0.9% 1,000 ML IV SCH ×3 (07:30→20:11)
[2020-12-03] MEDS: Cefepime 2 GM in Sodium Chloride 0.9% 100 ML IVPB SCH ×2 (08:45→20:09)
[2020-12-03 09:37] LABS: SARS-CoV-2 PCR by NAA Not Detected (NotDetected)
[2020-12-03] MEDS: Vancomycin HCl 750 MG in Sodium Chloride 0.9% 250 ML 250 ML IVPB SCH ×2 (10:38→23:30)
[2020-12-03] MEDS ORDERED: Iopamidol-370 76% 500 ML 1 ML ONE (12:15)
[2020-12-03 14:26] LABS: Hemoglobin 7.8 g/dL (14.0-18.0)
[2020-12-03] MEDS: Atorvastatin Calcium 40 MG TAB PO SCH (20:09)
[2020-12-03 22:11] LABS: Vancomycin, Trough 6.8 ug/mL
[2020-12-03] MEDS: Vancomycin 1 GM in Premix Bag 1 BAG IVPB SCH (23:04)
[2020-12-04] MEDS: Sodium Chloride 0.9% 1,000 ML IV SCH ×3 (05:53→21:20)
[2020-12-04 06:27] LABS: #Eosinphils 0.1 thou/uL (0.0-0.7); #Lymphocytes 1.1 thou/uL (1.20-3.40); #Monocytes 0.8 thou/uL (0.11-0.59); #Neutrophils 18.9 thou/uL (1.40-6.50); %Basophils 0.1 % (0.0-1.0); %Eosinophils 0.7 % (0.0-10.0); %Lymphocytes 5.4 % (21.0-51.0); %Monocytes 3.6 % (0.0-10.0); %Neutrophils 90.3 % (42.0-75.0); Hemoglobin 8.6 g/dL (14.0-18.0); Mean Corpuscular HGB CONC 32.1 g/dL (32.0-36.0); Mean Corpuscular Hemoglobin 25.9 pg (27.0-31.0); Mean Corpuscular Volume 80.6 fL (78.0-98.0); Mean Platelet Volume 7.3 fL (7.4-10.4); Platelet Count 434 thou/uL (130-400); RBC Distribution Width 20.4 % (11.5-14.5); Red Blood Cell (RBC) Count 3.33 mill/uL (4.70-6.10)
[2020-12-04 06:40] LABS: Anion Gap 14 mmol/L (10-20); BUN (Urea Nitrogen) 5 mg/dL (8.4-25.7); Calc. Creatinine Clearance 104 mL/min (70-130); Calcium 8.9 mg/dL (7.8-10.44); Carbon Dioxide 23 mmol/L (22-29); Chloride 105 mmol/L (98-107); Glucose 159 mg/dL (70-105); Potassium 3.5 mmol/L (3.5-5.1); Sodium 138 mmol/L (136-145)
[2020-12-04] MEDS: Methimazole 5 MG TAB PO SCH (08:46)
[2020-12-04] MEDS: Losartan 25 MG TAB PO SCH (08:47)
[2020-12-04] MEDS: Cefepime 2 GM in Sodium Chloride 0.9% 100 ML IVPB SCH ×2 (08:47→21:20)
[2020-12-04] MEDS: Vancomycin 1 GM in Premix Bag 1 BAG IVPB SCH ×2 (13:34→21:24)
[2020-12-04] MEDS: HumaLOG 300 UNITS/3 ML VIAL SC PRN ×2 (18:30→21:23)
[2020-12-04] MEDS: Atorvastatin Calcium 40 MG TAB PO SCH (21:20)
[2020-12-05] MEDS: Sodium Chloride 0.9% 1,000 ML IV SCH ×4 (05:14→23:55)
[2020-12-05 06:19] LABS: #Eosinphils 0.1 thou/uL (0.0-0.7); #Monocytes 0.8 thou/uL (0.11-0.59); #Neutrophils 13.5 thou/uL (1.40-6.50); %Basophils 0.1 % (0.0-1.0); %Eosinophils 0.6 % (0.0-10.0); %Lymphocytes 6.3 % (21.0-51.0); Mean Corpuscular HGB CONC 31.5 g/dL (32.0-36.0); Mean Corpuscular Hemoglobin 25.5 pg (27.0-31.0); Mean Corpuscular Volume 81.1 fL (78.0-98.0); Mean Platelet Volume 7.3 fL (7.4-10.4); Platelet Count 413 thou/uL (130-400); RBC Distribution Width 20.7 % (11.5-14.5); Red Blood Cell (RBC) Count 3.12 mill/uL (4.70-6.10); White Blood Cell (WBC) Count 15.4 thou/uL (4.8-10.8)
[2020-12-05 06:37] LABS: Anion Gap 8 mmol/L (10-20); BUN (Urea Nitrogen) 7 mg/dL (8.4-25.7); Calc. Creatinine Clearance 106 mL/min (70-130); Calcium 8.7 mg/dL (7.8-10.44); Carbon Dioxide 27 mmol/L (22-29); Chloride 107 mmol/L (98-107); Glucose 173 mg/dL (70-105); Potassium 3.4 mmol/L (3.5-5.1); Sodium 139 mmol/L (136-145)
[2020-12-05] MEDS: Methimazole 5 MG TAB PO SCH (08:19)
[2020-12-05] MEDS: Cefepime 2 GM in Sodium Chloride 0.9% 100 ML IVPB SCH ×2 (08:19→20:47)
[2020-12-05] MEDS: Losartan 25 MG TAB PO SCH (08:19)
[2020-12-05 10:54] LABS: Vancomycin, Trough 10.2 ug/mL
[2020-12-05] MEDS: HumaLOG 300 UNITS/3 ML VIAL SC PRN ×2 (13:21→17:15)
[2020-12-05] MEDS: Vancomycin 1.5 GRAM/300 ML BAG 1.5 GM in Premix Bag 1 BAG IVPB SCH ×2 (13:22→23:55)
[2020-12-05] MEDS: Vancomycin 1 GM in Premix Bag 1 BAG IVPB SCH (13:39)
[2020-12-05] MEDS: Acetaminophen 325 MG TAB PO PRN (15:23)
[2020-12-05] MEDS: Atorvastatin Calcium 40 MG TAB PO SCH (20:47)
[2020-12-06 05:50] LABS: #Eosinphils 0.1 thou/uL (0.0-0.7); #Lymphocytes 0.9 thou/uL (1.20-3.40); #Monocytes 0.9 thou/uL (0.11-0.59); %Basophils 0.2 % (0.0-1.0); %Eosinophils 0.7 % (0.0-10.0); %Lymphocytes 6.2 % (21.0-51.0); %Monocytes 5.7 % (0.0-10.0); %Neutrophils 87.3 % (42.0-75.0); Hemoglobin 7.9 g/dL (14.0-18.0); Mean Corpuscular Hemoglobin 25.1 pg (27.0-31.0); Mean Corpuscular Volume 80.8 fL (78.0-98.0); Mean Platelet Volume 7.4 fL (7.4-10.4); Platelet Count 427 thou/uL (130-400); RBC Distribution Width 21.1 % (11.5-14.5); Red Blood Cell (RBC) Count 3.16 mill/uL (4.70-6.10); White Blood Cell (WBC) Count 14.9 thou/uL (4.8-10.8)
[2020-12-06 06:00] LABS: Anion Gap 9 mmol/L (10-20); BUN (Urea Nitrogen) 4 mg/dL (8.4-25.7); Calc. Creatinine Clearance 113 mL/min (70-130); Calcium 8.5 mg/dL (7.8-10.44); Carbon Dioxide 27 mmol/L (22-29); Chloride 105 mmol/L (98-107); Glucose 140 mg/dL (70-105); Potassium 3.4 mmol/L (3.5-5.1); Sodium 138 mmol/L (136-145)
[2020-12-06] MEDS: Sodium Chloride 0.9% 1,000 ML IV SCH ×3 (06:14→20:40)
[2020-12-06] MEDS: Losartan 25 MG TAB PO SCH (09:26)
[2020-12-06] MEDS: Methimazole 5 MG TAB PO SCH (09:26)
[2020-12-06] MEDS: Cefepime 2 GM in Sodium Chloride 0.9% 100 ML IVPB SCH ×2 (09:26→20:41)
[2020-12-06] MEDS: Vancomycin 1.5 GRAM/300 ML BAG 1.5 GM in Premix Bag 1 BAG IVPB SCH (12:37)
[2020-12-06] MEDS: HumaLOG 300 UNITS/3 ML VIAL SC PRN ×2 (17:38→20:41)
[2020-12-06] MEDS: Atorvastatin Calcium 40 MG TAB PO SCH (20:41)
[2020-12-06] MEDS: Acetaminophen 325 MG TAB PO PRN (20:43)
[2020-12-07 00:02] LABS: Vancomycin, Trough 14.2 ug/mL
[2020-12-07] MEDS: Vancomycin 1.5 GRAM/300 ML BAG 1.5 GM in Premix Bag 1 BAG IVPB SCH ×2 (00:34→12:29)
[2020-12-07 06:21] LABS: #Eosinphils 0.1 thou/uL (0.0-0.7); #Lymphocytes 0.9 thou/uL (1.20-3.40); #Monocytes 0.8 thou/uL (0.11-0.59); #Neutrophils 11.5 thou/uL (1.40-6.50); %Basophils 0.1 % (0.0-1.0); %Eosinophils 0.7 % (0.0-10.0); %Lymphocytes 6.5 % (21.0-51.0); %Neutrophils 86.7 % (42.0-75.0); Hemoglobin 8.6 g/dL (14.0-18.0); Mean Corpuscular HGB CONC 31.2 g/dL (32.0-36.0); Mean Corpuscular Hemoglobin 25.4 pg (27.0-31.0); Mean Corpuscular Volume 81.3 fL (78.0-98.0); Platelet Count 368 thou/uL (130-400); RBC Distribution Width 20.9 % (11.5-14.5); Red Blood Cell (RBC) Count 3.37 mill/uL (4.70-6.10); White Blood Cell (WBC) Count 13.3 thou/uL (4.8-10.8)
[2020-12-07 06:38] LABS: Anion Gap 8 mmol/L (10-20); BUN (Urea Nitrogen) 6 mg/dL (8.4-25.7); Calc. Creatinine Clearance 113 mL/min (70-130); Calcium 8.5 mg/dL (7.8-10.44); Carbon Dioxide 28 mmol/L (22-29); Chloride 107 mmol/L (98-107); Glucose 171 mg/dL (70-105); Potassium 3.5 mmol/L (3.5-5.1); Sodium 139 mmol/L (136-145)
[2020-12-07] MEDS: Sodium Chloride 0.9% 1,000 ML IV SCH ×2 (08:22→12:29)
[2020-12-07] MEDS: Methimazole 5 MG TAB PO SCH (08:22)
[2020-12-07] MEDS: Losartan 25 MG TAB PO SCH (08:22)
[2020-12-07] MEDS: Cefepime 2 GM in Sodium Chloride 0.9% 100 ML IVPB SCH ×2 (08:22→20:19)
[2020-12-07] MEDS: HumaLOG 300 UNITS/3 ML VIAL SC PRN (12:52)
[2020-12-07] MEDS: Acetaminophen 325 MG TAB PO PRN (17:34)
[2020-12-07] MEDS: Atorvastatin Calcium 40 MG TAB PO SCH (20:19)
[2020-12-08] MEDS: Sodium Chloride 0.9% 1,000 ML IV SCH ×4 (00:15→23:25)
[2020-12-08] MEDS: Vancomycin 1.5 GRAM/300 ML BAG 1.5 GM in Premix Bag 1 BAG IVPB SCH ×3 (00:15→23:23)
[2020-12-08] MEDS: Acetaminophen 325 MG TAB PO PRN ×3 (05:49→23:27)
[2020-12-08 06:24] LABS: #Eosinphils 0.1 thou/uL (0.0-0.7); #Lymphocytes 0.8 thou/uL (1.20-3.40); #Monocytes 0.7 thou/uL (0.11-0.59); #Neutrophils 10.9 thou/uL (1.40-6.50); %Basophils 0.1 % (0.0-1.0); %Eosinophils 1.2 % (0.0-10.0); %Lymphocytes 6.6 % (21.0-51.0); %Monocytes 5.8 % (0.0-10.0); %Neutrophils 86.4 % (42.0-75.0); Hemoglobin 7.5 g/dL (14.0-18.0); Mean Corpuscular HGB CONC 31.5 g/dL (32.0-36.0); Mean Corpuscular Hemoglobin 25.5 pg (27.0-31.0); Mean Corpuscular Volume 81.2 fL (78.0-98.0); Mean Platelet Volume 7.3 fL (7.4-10.4); Platelet Count 437 thou/uL (130-400); RBC Distribution Width 21.2 % (11.5-14.5); Red Blood Cell (RBC) Count 2.93 mill/uL (4.70-6.10); White Blood Cell (WBC) Count 12.6 thou/uL (4.8-10.8)
[2020-12-08 06:35] LABS: Anion Gap 10 mmol/L (10-20); BUN (Urea Nitrogen) 6 mg/dL (8.4-25.7); Calc. Creatinine Clearance 106 mL/min (70-130); Calcium 8.1 mg/dL (7.8-10.44); Carbon Dioxide 25 mmol/L (22-29); Chloride 103 mmol/L (98-107); Glucose 213 mg/dL (70-105); Potassium 3.4 mmol/L (3.5-5.1); Sodium 135 mmol/L (136-145)
[2020-12-08] MEDS ORDERED: Potassium Chloride 20 MEQ TAB PO SCH (08:15)
[2020-12-08 08:35] LABS: Bite Cells SLIGHT = 2-5 cells (100X) (0-1/hpf); Hypochromia SLIGHT = 6-15 cells (100X) (0-5/hpf); MDiff Complete? YES; Platelet Morphology Comment Appears Increased; Polychromasia SLIGHT = 2-3 cells (100X) (0-2/hpf); Schistocytes SLIGHT = 2-5 cells (100X) (0-1/hpf)
[2020-12-08] MEDS: Cefepime 2 GM in Sodium Chloride 0.9% 100 ML IVPB SCH ×2 (08:55→20:08)
[2020-12-08] MEDS: Methimazole 5 MG TAB PO SCH (08:58)
[2020-12-08] MEDS: Losartan 25 MG TAB PO SCH (08:58)
[2020-12-08] MEDS: Atorvastatin Calcium 40 MG TAB PO SCH (20:07)
[2020-12-08] MEDS: HumaLOG 300 UNITS/3 ML VIAL SC PRN (20:14)
[2020-12-09] MEDS: Sodium Chloride 0.9% 1,000 ML IV SCH ×3 (03:12→21:02)
[2020-12-09 05:26] LABS: #Eosinphils 0.1 thou/uL (0.0-0.7); #Lymphocytes 0.9 thou/uL (1.20-3.40); #Monocytes 0.8 thou/uL (0.11-0.59); #Neutrophils 10.5 thou/uL (1.40-6.50); %Basophils 0.1 % (0.0-1.0); %Lymphocytes 6.9 % (21.0-51.0); %Monocytes 6.8 % (0.0-10.0); %Neutrophils 85.3 % (42.0-75.0); Hemoglobin 7.3 g/dL (14.0-18.0); Mean Corpuscular HGB CONC 31.1 g/dL (32.0-36.0); Mean Corpuscular Hemoglobin 25.1 pg (27.0-31.0); Mean Corpuscular Volume 80.9 fL (78.0-98.0); Mean Platelet Volume 7.1 fL (7.4-10.4); Platelet Count 449 thou/uL (130-400); RBC Distribution Width 21.1 % (11.5-14.5); White Blood Cell (WBC) Count 12.4 thou/uL (4.8-10.8)
[2020-12-09 05:36] LABS: Anion Gap 14 mmol/L (10-20); BUN (Urea Nitrogen) 6 mg/dL (8.4-25.7); Calc. Creatinine Clearance 108 mL/min (70-130); Calcium 8.3 mg/dL (7.8-10.44); Carbon Dioxide 23 mmol/L (22-29); Chloride 108 mmol/L (98-107); Glucose 166 mg/dL (70-105); Potassium 3.5 mmol/L (3.5-5.1); Sodium 141 mmol/L (136-145)
[2020-12-09] MEDS: Losartan 25 MG TAB PO SCH (09:27)
[2020-12-09] MEDS: Methimazole 5 MG TAB PO SCH (09:27)
[2020-12-09] MEDS: Cefepime 2 GM in Sodium Chloride 0.9% 100 ML IVPB SCH ×2 (09:27→21:02)
[2020-12-09] MEDS: Vancomycin 1.5 GRAM/300 ML BAG 1.5 GM in Premix Bag 1 BAG IVPB SCH ×2 (12:07→23:20)
[2020-12-09] MEDS: HumaLOG 300 UNITS/3 ML VIAL SC PRN (17:44)
[2020-12-09] MEDS: Atorvastatin Calcium 40 MG TAB PO SCH (21:02)
[2020-12-09] MEDS: Acetaminophen 325 MG TAB PO PRN (21:04)
[2020-12-10] MEDS: Sodium Chloride 0.9% 1,000 ML IV SCH (04:46)
[2020-12-10 04:59] LABS: #Eosinphils 0.1 thou/uL (0.0-0.7); #Lymphocytes 0.9 thou/uL (1.20-3.40); #Monocytes 0.8 thou/uL (0.11-0.59); #Neutrophils 10.6 thou/uL (1.40-6.50); %Basophils 0.2 % (0.0-1.0); %Eosinophils 0.9 % (0.0-10.0); %Monocytes 6.1 % (0.0-10.0); %Neutrophils 85.9 % (42.0-75.0); Hemoglobin 7.3 g/dL (14.0-18.0); Mean Corpuscular HGB CONC 30.3 g/dL (32.0-36.0); Mean Corpuscular Hemoglobin 24.4 pg (27.0-31.0); Mean Corpuscular Volume 80.6 fL (78.0-98.0); Mean Platelet Volume 6.9 fL (7.4-10.4); Platelet Count 460 thou/uL (130-400); RBC Distribution Width 21.4 % (11.5-14.5); White Blood Cell (WBC) Count 12.3 thou/uL (4.8-10.8)
[2020-12-10 05:19] LABS: Anion Gap 12 mmol/L (10-20); BUN (Urea Nitrogen) 6 mg/dL (8.4-25.7); Calc. Creatinine Clearance 104 mL/min (70-130); Calcium 8.3 mg/dL (7.8-10.44); Carbon Dioxide 25 mmol/L (22-29); Chloride 107 mmol/L (98-107); Glucose 221 mg/dL (70-105); Potassium 3.6 mmol/L (3.5-5.1); Sodium 140 mmol/L (136-145)
[2020-12-10] MEDS: HumaLOG 300 UNITS/3 ML VIAL SC PRN ×2 (05:44→11:20)
[2020-12-10] MEDS: Cefepime 2 GM in Sodium Chloride 0.9% 100 ML IVPB SCH (08:56)
[2020-12-10] MEDS: Losartan 25 MG TAB PO SCH (08:57)
[2020-12-10] MEDS: Methimazole 5 MG TAB PO SCH (08:57)
[2020-12-10 10:22] VITALS: BP 134/76; TEMP 98.9
[2020-12-10] MEDS: Vancomycin 1.5 GRAM/300 ML BAG 1.5 GM in Premix Bag 1 BAG IVPB SCH (11:19)
[2020-12-10] MEDS: Acetaminophen 325 MG TAB PO PRN (11:20)
== END 2020-12-10 15:10 | disposition home or self-care (01) | DRG 143 ==
LOC: ONC 08:56
PROVIDERS: ADMIT Internal Medicine; ATTEND Internal Medicine
PROC: 30233N1 Transfusion of Nonautologous Red Blood Cells into Peripheral Vein, Percutaneous Approach (ICD-10-PCS; 2020-12-03)
PROC: [UNRECOGNIZED PROCEDURE] (2020-12-04)
PROC: 0W363ZZ Control Bleeding in Neck, Percutaneous Approach (ICD-10-PCS; principal; 2020-12-05)
DX: C76.0 Malignant neoplasm of head, face and neck (principal); A41.9 Sepsis, unspecified organism; E44.0 Moderate protein-calorie malnutrition; Z68.1 Body mass index [BMI] 19.9 or less, adult; C34.92 Malignant neoplasm of unspecified part of left bronchus or lung; C15.4 Malignant neoplasm of middle third of esophagus; D62 Acute posthemorrhagic anemia; Z20.822 Contact with and (suspected) exposure to COVID-19; E11.9 Type 2 diabetes mellitus without complications; I10 Essential (primary) hypertension; D50.9 Iron deficiency anemia, unspecified; E21.3 Hyperparathyroidism, unspecified; Z79.899 Other long term (current) drug therapy; Z79.84 Long term (current) use of oral hypoglycemic drugs; Z80.8 Family history of malignant neoplasm of other organs or systems; Z87.891 Personal history of nicotine dependence; E03.9 Hypothyroidism, unspecified
CPT/HCPCS: 36415; 36416; 36430; 70491; 77336; 77412; 77417; 80048; 80053; 80202; 81003; 81015; 83605; 85025; 85610; 85730; 86850; 86900; 86901; 87040; 87070; 87205; 87635; 93005; 93010; 96365; 96375; 99284; J0692; J1642; J1815; J2270; J3370; J3490; J7050; P9016; Q9967; U0003; U0005

== ENCOUNTER 2020-12-10 15:31 | Emergency (ER) | payer MEDICARE ==
[2020-12-10 16:51] LABS: #Eosinphils 0.1 thou/uL (0.0-0.7); #Neutrophils 10.4 thou/uL (1.40-6.50); %Eosinophils 0.6 % (0.0-10.0); %Lymphocytes 7.9 % (21.0-51.0); %Monocytes 7.7 % (0.0-10.0); %Neutrophils 83.8 % (42.0-75.0); Hemoglobin 8.2 g/dL (14.0-18.0); Mean Corpuscular HGB CONC 31.6 g/dL (32.0-36.0); Mean Corpuscular Hemoglobin 25.5 pg (27.0-31.0); Mean Corpuscular Volume 80.7 fL (78.0-98.0); Mean Platelet Volume 7.1 fL (7.4-10.4); Platelet Count 445 thou/uL (130-400); RBC Distribution Width 21.5 % (11.5-14.5); Red Blood Cell (RBC) Count 3.21 mill/uL (4.70-6.10); White Blood Cell (WBC) Count 12.4 thou/uL (4.8-10.8)
[2020-12-10 17:07] LABS: ALT (SGPT) Less than 7 U/L (8-55); AST (SGOT) 7 U/L (5-34); Albumin 2.7 g/dL (3.5-5.0); Alkaline Phosphatase 166 U/L (40-110); Anion Gap 13 mmol/L (10-20); BUN (Urea Nitrogen) 6 mg/dL (8.4-25.7); Bilirubin, Total 0.2 mg/dL (0.2-1.2); Calc. Creatinine Clearance 0 mL/min (70-130); Calcium 8.5 mg/dL (7.8-10.44); Carbon Dioxide 25 mmol/L (22-29); Chloride 104 mmol/L (98-107); Globulin 3.9 g/dL (2.4-3.5); Glucose 170 mg/dL (70-105); Potassium 3.6 mmol/L (3.5-5.1); Protein, Total 6.6 g/dL (6.0-8.3); Sodium 138 mmol/L (136-145)
== END 2020-12-10 18:52 | disposition home or self-care (01) ==
LOC: ERS 15:31
DX: C44.42 Squamous cell carcinoma of skin of scalp and neck (principal); C78.02 Secondary malignant neoplasm of left lung; D64.9 Anemia, unspecified; R23.3 Spontaneous ecchymoses; E11.9 Type 2 diabetes mellitus without complications; E03.9 Hypothyroidism, unspecified; I10 Essential (primary) hypertension; E78.00 Pure hypercholesterolemia, unspecified; Z87.891 Personal history of nicotine dependence; Z79.84 Long term (current) use of oral hypoglycemic drugs
CPT/HCPCS: 36415; 99283

== ENCOUNTER 2020-12-22 10:36 | Inpatient (IN) | payer MEDICARE ==
[2020-12-22] MEDS ORDERED: Cefepime 2 GM VIAL ONE (11:01)
[2020-12-22] MEDS ORDERED: Vancomycin 1.5 GRAM/300 ML BAG 1.5 GM in Premix Bag 1 BAG IVPB SCH (11:15)
[2020-12-22] MEDS ORDERED: Acetaminophen 500 MG TAB ONE (11:26)
[2020-12-22 11:47] LABS: #Eosinphils 0.1 thou/uL (0.0-0.7); #Lymphocytes 0.8 thou/uL (1.20-3.40); #Monocytes 0.8 thou/uL (0.11-0.59); #Neutrophils 13.2 thou/uL (1.40-6.50); %Basophils 0.2 % (0.0-1.0); %Eosinophils 0.4 % (0.0-10.0); %Lymphocytes 5.4 % (21.0-51.0); %Monocytes 5.2 % (0.0-10.0); %Neutrophils 88.8 % (42.0-75.0); Hemoglobin 7.3 g/dL (14.0-18.0); Mean Corpuscular HGB CONC 30.9 g/dL (32.0-36.0); Mean Corpuscular Hemoglobin 23.2 pg (27.0-31.0); Mean Corpuscular Volume 75.1 fL (78.0-98.0); Mean Platelet Volume 7.6 fL (7.4-10.4); Platelet Count 466 thou/uL (130-400); RBC Distribution Width 22.6 % (11.5-14.5); Red Blood Cell (RBC) Count 3.14 mill/uL (4.70-6.10); White Blood Cell (WBC) Count 14.8 thou/uL (4.8-10.8)
[2020-12-22 12:03] LABS: ALT (SGPT) 7 U/L (8-55); AST (SGOT) 8 U/L (5-34); Albumin 3.1 g/dL (3.5-5.0); Alkaline Phosphatase 147 U/L (40-110); Anion Gap 15 mmol/L (10-20); BUN (Urea Nitrogen) 36 mg/dL (8.4-25.7); Bilirubin, Total 0.3 mg/dL (0.2-1.2); Calc. Creatinine Clearance 0 mL/min (70-130); Calcium 8.6 mg/dL (7.8-10.44); Carbon Dioxide 21 mmol/L (22-29); Chloride 101 mmol/L (98-107); Globulin 4.5 g/dL (2.4-3.5); Glucose 304 mg/dL (70-105); Potassium 3.5 mmol/L (3.5-5.1); Protein, Total 7.6 g/dL (6.0-8.3); Sodium 133 mmol/L (136-145)
[2020-12-22 12:10] LABS: Hypochromia SLIGHT = 6-15 cells (100X) (0-5/hpf); MDiff Complete? YES; Microcytosis SLIGHT = 6-15 cells (100X) (0-5/hpf); Platelet Morphology Comment Appears Increased; Polychromasia SLIGHT = 2-3 cells (100X) (0-2/hpf)
[2020-12-22 13:29] LABS: Bilirubin Negative (Negative); Blood, Urine Negative (Negative); Clarity Clear (Clear); Glucose, Urine (Dipstick) Greater than 1000 mg/dL (Negative); Ketone, Urine Negative (Negative); Leukocyte Negative Leu/uL (Negative); Nitrite Negative (Negative); Protein, Urine (Dipstick) 20 mg/dL (Neg-Trace); Specific Gravity, Urine 1.023 (1.002-1.036); Urobilinogen Normal mg/dL (Less than 2); pH, Urine 5.5 (5.0-9.0)
[2020-12-22] MEDS ORDERED: Guaifenesin DM 100-10/5 ML UDCUP PO PRN (15:43)
[2020-12-22] MEDS ORDERED: Ondansetron ODT 4 MG TAB PO PRN (15:43)
[2020-12-22] MEDS ORDERED: Acetaminophen 650 MG Suppository PR PRN (15:43)
[2020-12-22] MEDS ORDERED: Ondansetron PF 4 MG/2 ML Vial IVP PRN (15:43)
[2020-12-22] MEDS ORDERED: Vancomycin 1 GM in Premix Bag 1 BAG IVPB SCH (15:45)
[2020-12-22] MEDS ORDERED: Dextrose 50% Abboject 50 ML SYRINGE SLOW IVP PRN (15:46)
[2020-12-22] MEDS ORDERED: Insulin Regular 300 UNITS/3 ML VIAL SC PRN (15:46)
[2020-12-22] MEDS ORDERED: Dextrose 5% in Water 1,000 ML IV PRN (15:46)
[2020-12-22 18:13] VITALS: BMI 16.2
[2020-12-22] MEDS: Acetaminophen 325 MG TAB PO PRN (21:31)
[2020-12-22] MEDS ORDERED: Cefepime 2 GM in Sodium Chloride 0.9% 100 ML IVPB SCH (23:00)
[2020-12-22] MEDS: Vancomycin HCl 750 MG in Sodium Chloride 0.9% 250 ML 250 ML IVPB SCH (23:36)
[2020-12-22] MEDS: Piperacillin/Tazobactam 3.375 GM in Sodium Chloride 0.9% 100 ML IVPB SCH (23:36)
[2020-12-23 01:19] LABS: SARS-CoV-2 PCR by NAA Not Detected (NotDetected)
[2020-12-23] MEDS: Piperacillin/Tazobactam 3.375 GM in Sodium Chloride 0.9% 100 ML IVPB SCH ×4 (04:18→23:27)
[2020-12-23] MEDS: Insulin Regular 300 UNITS/3 ML VIAL SC PRN ×2 (05:10→17:12)
[2020-12-23 06:44] LABS: Anion Gap 12 mmol/L (10-20); BUN (Urea Nitrogen) 15 mg/dL (8.4-25.7); Calc. Creatinine Clearance 70 mL/min (70-130); Calcium 8.9 mg/dL (7.8-10.44); Carbon Dioxide 20 mmol/L (22-29); Chloride 107 mmol/L (98-107); Glucose 206 mg/dL (70-105); Potassium 3.3 mmol/L (3.5-5.1); Sodium 136 mmol/L (136-145)
[2020-12-23 06:46] LABS: Hemoglobin 7.3 g/dL (14.0-18.0); Mean Corpuscular HGB CONC 31.1 g/dL (32.0-36.0); Mean Corpuscular Hemoglobin 23.5 pg (27.0-31.0); Mean Corpuscular Volume 75.4 fL (78.0-98.0); Mean Platelet Volume 7.9 fL (7.4-10.4); Platelet Count 403 thou/uL (130-400); RBC Distribution Width 22.1 % (11.5-14.5); White Blood Cell (WBC) Count 14.2 thou/uL (4.8-10.8)
[2020-12-23 06:49] LABS: #Eosinphils 0.1 thou/uL (0.0-0.7); #Lymphocytes 0.7 thou/uL (1.20-3.40); #Monocytes 0.7 thou/uL (0.11-0.59); #Neutrophils 12.7 thou/uL (1.40-6.50); %Basophils 0.1 % (0.0-1.0); %Eosinophils 0.9 % (0.0-10.0); %Lymphocytes 4.8 % (21.0-51.0); %Monocytes 4.6 % (0.0-10.0); %Neutrophils 89.6 % (42.0-75.0); Anisocytosis SLIGHT = 6-15 cells (100X) (0-5/hpf); Hypochromia SLIGHT = 6-15 cells (100X) (0-5/hpf); MDiff Complete? YES; Microcytosis SLIGHT = 6-15 cells (100X) (0-5/hpf)
[2020-12-23] MEDS ORDERED: Piperacillin/Tazobactam 3.375 GM VIAL ONE (12:39)
[2020-12-23] MEDS: Vancomycin HCl 750 MG in Sodium Chloride 0.9% 250 ML 250 ML IVPB SCH (15:26)
[2020-12-23] MEDS ORDERED: Potassium Chloride 20 MEQ TAB PO SCH (16:15)
[2020-12-23] MEDS: Acetaminophen 325 MG TAB PO PRN (17:11)
[2020-12-23 23:49] LABS: Vancomycin, Trough 13.1 ug/mL
[2020-12-24] MEDS: Vancomycin HCl 750 MG in Sodium Chloride 0.9% 250 ML 250 ML IVPB SCH ×4 (00:52→16:56)
[2020-12-24] MEDS: Piperacillin/Tazobactam 3.375 GM in Sodium Chloride 0.9% 100 ML IVPB SCH ×4 (04:30→23:40)
[2020-12-24] MEDS: Insulin Regular 300 UNITS/3 ML VIAL SC PRN ×2 (06:08→18:54)
[2020-12-24 06:46] LABS: #Eosinphils 0.1 thou/uL (0.0-0.7); #Lymphocytes 0.7 thou/uL (1.20-3.40); #Monocytes 0.6 thou/uL (0.11-0.59); #Neutrophils 9.3 thou/uL (1.40-6.50); %Lymphocytes 6.5 % (21.0-51.0); %Monocytes 5.6 % (0.0-10.0); %Neutrophils 86.8 % (42.0-75.0); Hemoglobin 7.1 g/dL (14.0-18.0); Mean Corpuscular HGB CONC 30.5 g/dL (32.0-36.0); Mean Corpuscular Hemoglobin 23.1 pg (27.0-31.0); Mean Corpuscular Volume 75.6 fL (78.0-98.0); Mean Platelet Volume 8.1 fL (7.4-10.4); Platelet Count 370 thou/uL (130-400); RBC Distribution Width 21.5 % (11.5-14.5); Red Blood Cell (RBC) Count 3.09 mill/uL (4.70-6.10); White Blood Cell (WBC) Count 10.7 thou/uL (4.8-10.8)
[2020-12-24 06:55] LABS: Anion Gap 14 mmol/L (10-20); BUN (Urea Nitrogen) 6 mg/dL (8.4-25.7); CRP (Inflammatory) 12.83 mg/dL (= or < 0.5); Calc. Creatinine Clearance 77 mL/min (70-130); Calcium 8.1 mg/dL (7.8-10.44); Carbon Dioxide 21 mmol/L (22-29); Chloride 109 mmol/L (98-107); Glucose 231 mg/dL (70-105); Potassium 3.9 mmol/L (3.5-5.1); Sodium 140 mmol/L (136-145)
[2020-12-24 09:15] LABS: Hypochromia SLIGHT = 6-15 cells (100X) (0-5/hpf); MDiff Complete? YES; Microcytosis SLIGHT = 6-15 cells (100X) (0-5/hpf); Platelet Morphology Comment Appears Adequate; Polychromasia SLIGHT = 2-3 cells (100X) (0-2/hpf)
[2020-12-24] MEDS: Acetaminophen 325 MG TAB PO PRN (10:28)
[2020-12-25 00:06] LABS: Vancomycin, Trough 18.6 ug/mL
[2020-12-25] MEDS: Vancomycin HCl 750 MG in Sodium Chloride 0.9% 250 ML 250 ML IVPB SCH ×3 (01:22→18:44)
[2020-12-25] MEDS: Piperacillin/Tazobactam 3.375 GM in Sodium Chloride 0.9% 100 ML IVPB SCH ×4 (04:18→23:08)
[2020-12-25] MEDS: Insulin Regular 300 UNITS/3 ML VIAL SC PRN ×3 (05:58→16:46)
[2020-12-25] MEDS: Acetaminophen 325 MG TAB PO PRN (11:19)
[2020-12-25] MEDS: metFORMIN 500 MG TAB PO SCH (16:43)
[2020-12-26 00:33] LABS: Vancomycin, Trough 20.5 ug/mL
[2020-12-26] MEDS: Vancomycin HCl 750 MG in Sodium Chloride 0.9% 250 ML 250 ML IVPB SCH ×2 (00:44→08:41)
[2020-12-26] MEDS: Piperacillin/Tazobactam 3.375 GM in Sodium Chloride 0.9% 100 ML IVPB SCH ×2 (04:41→12:14)
[2020-12-26] MEDS: Insulin Regular 300 UNITS/3 ML VIAL SC PRN (04:52)
[2020-12-26] MEDS: Acetaminophen 325 MG TAB PO PRN (04:55)
[2020-12-26] MEDS: metFORMIN 500 MG TAB PO SCH (07:42)
[2020-12-26] MEDS ORDERED: Losartan 25 MG TAB PO SCH (09:00)
[2020-12-26] MEDS ORDERED: FLUoxetine HCl 20 MG CAP PO SCH (09:00)
[2020-12-26 16:14] VITALS: BP 146/80; TEMP 98
[2020-12-27] MEDS ORDERED: Ferrous Sulfate 325 MG TAB PO SCH (09:00)
== END 2020-12-26 16:17 | disposition home health service (06) | DRG 872 ==
LOC: ERS 10:36 → ERHOLD 13:43 → OBSVTOIN 15:53 → T4-B 17:39
PROVIDERS: ADMIT Internal Medicine; ATTEND Family Medicine
DX: A41.9 Sepsis, unspecified organism (principal); E44.0 Moderate protein-calorie malnutrition; Z68.1 Body mass index [BMI] 19.9 or less, adult; L02.11 Cutaneous abscess of neck; L03.221 Cellulitis of neck; C15.9 Malignant neoplasm of esophagus, unspecified; C78.02 Secondary malignant neoplasm of left lung; Z20.822 Contact with and (suspected) exposure to COVID-19; E78.5 Hyperlipidemia, unspecified; D50.9 Iron deficiency anemia, unspecified; I12.9 Hypertensive chronic kidney disease with stage 1 through stage 4 chronic kidney disease, or unspecified chronic kidney disease; E11.22 Type 2 diabetes mellitus with diabetic chronic kidney disease; D63.1 Anemia in chronic kidney disease; N18.9 Chronic kidney disease, unspecified; E03.9 Hypothyroidism, unspecified; H40.9 Unspecified glaucoma; E78.00 Pure hypercholesterolemia, unspecified; F32.9 Major depressive disorder, single episode, unspecified; E05.90 Thyrotoxicosis, unspecified without thyrotoxic crisis or storm; Z79.84 Long term (current) use of oral hypoglycemic drugs; Z79.899 Other long term (current) drug therapy; Z92.3 Personal history of irradiation; Z92.21 Personal history of antineoplastic chemotherapy; Z87.891 Personal history of nicotine dependence
CPT/HCPCS: 36415; 36416; 70491; 71045; 71111; 80048; 80053; 80202; 81003; 83605; 84443; 84484; 85025; 85652; 86140; 87040; 87070; 87205; 87635; 93005; 94760; 96365; 96366; 96367; G0378; J0692; J1815; J2543; J3370; J3490; J7050; U0003; U0005

== ENCOUNTER 2021-01-01 11:45 | Outpatient (CLI) | payer MEDICARE | END 2021-01-01 11:46 | disposition home or self-care (01) | LOC: PET 11:45 | PROVIDERS: ATTEND Internal Medicine Hematology & Oncology | DX: C15.3 Malignant neoplasm of upper third of esophagus (principal); R91.8 Other nonspecific abnormal finding of lung field | CPT/HCPCS: 78815; A9552 ==

== ENCOUNTER 2021-01-06 11:00 | Day surgery (SDC) | payer MEDICARE ==
[~2021-01-06 11:00] MED LIST changes: -Palonosetron HCl 0.25 MG in Sodium Chloride 0.9% 50 ML IVPB SCH; +Pembrolizumab 400 MG in Sodium Chloride 0.9% 250 ML 250 ML IV SCH
[2021-01-06] MEDS ORDERED: Sodium Chloride 0.9% 20 ML ONE (11:05)
[2021-01-06 11:19] VITALS: BP 152/76; TEMP 98.6
== END 2021-01-06 15:30 | disposition home or self-care (01) ==
LOC: ONC/OP 11:00
PROVIDERS: ATTEND Internal Medicine Hematology & Oncology
DX: Z51.11 Encounter for antineoplastic chemotherapy (principal); C15.3 Malignant neoplasm of upper third of esophagus; C34.12 Malignant neoplasm of upper lobe, left bronchus or lung; D50.0 Iron deficiency anemia secondary to blood loss (chronic); E83.52 Hypercalcemia
CPT/HCPCS: 96375; 96413; 96415; 96416; 96417; J1100; J2469; J7070; J9190; J9263

== ENCOUNTER 2021-01-20 11:21 | Day surgery (SDC) | payer MEDICARE ==
[~2021-01-20 11:21] MED LIST changes: -Pembrolizumab 400 MG in Sodium Chloride 0.9% 250 ML 250 ML IV SCH
[2021-01-20 12:19] VITALS: BP 138/71; TEMP 98.2
== END 2021-01-20 15:16 | disposition home or self-care (01) ==
LOC: ONC/OP 11:21
PROVIDERS: ATTEND Internal Medicine Hematology & Oncology
DX: Z51.11 Encounter for antineoplastic chemotherapy (principal); C15.3 Malignant neoplasm of upper third of esophagus; C34.12 Malignant neoplasm of upper lobe, left bronchus or lung; D50.0 Iron deficiency anemia secondary to blood loss (chronic); R22.1 Localized swelling, mass and lump, neck; E83.52 Hypercalcemia
CPT/HCPCS: 96375; 96413; 96416; 96417; J1100; J2469; J7070; J9190; J9263

== ENCOUNTER 2021-02-03 10:06 | Day surgery (SDC) | payer MEDICARE, OTHER ==
[2021-02-03] MEDS ORDERED: Sodium Chloride 0.9% 20 ML ONE (10:09)
[2021-02-03 10:34] VITALS: BP 170/87
== END 2021-02-03 14:20 | disposition home or self-care (01) ==
LOC: ONC/OP 10:06
PROVIDERS: ATTEND Internal Medicine Hematology & Oncology
DX: Z51.11 Encounter for antineoplastic chemotherapy (principal); C15.3 Malignant neoplasm of upper third of esophagus; C34.12 Malignant neoplasm of upper lobe, left bronchus or lung; D50.0 Iron deficiency anemia secondary to blood loss (chronic); E83.52 Hypercalcemia
CPT/HCPCS: 96375; 96413; 96415; 96416; 96417; J1100; J2469; J7070; J9190; J9263

== ENCOUNTER 2021-02-17 11:29 | Day surgery (SDC) | payer MEDICARE, OTHER ==
[~2021-02-17 11:29] MED LIST changes: +Pembrolizumab 400 MG in Sodium Chloride 0.9% 250 ML 250 ML IV SCH
[2021-02-17] MEDS ORDERED: Sodium Chloride 0.9% 20 ML ONE (12:19)
[2021-02-17 13:33] VITALS: BP 159/79; TEMP 98.2
[2021-02-18] MEDS ORDERED: DEXTROSE 5% IVPB SCH ×2 (01:16)
[2021-02-18] MEDS ORDERED: OXALIPLATIN IVPB SCH (01:16)
[2021-02-18] MEDS ORDERED: WATER IVPB SCH ×2 (01:16)
[2021-02-18] MEDS ORDERED: FLUOROURACIL IVPB SCH (01:16)
[2021-02-18] MEDS ORDERED: PALONOSETRON HCL 0.05 MG/ML 5 ML VIAL IVP SCH (01:16)
[2021-02-18] MEDS ORDERED: Pembrolizumab 400 MG in Sodium Chloride 0.9% 250 ML 250 ML IV SCH (01:18)
== END 2021-02-17 16:02 | disposition home or self-care (01) ==
LOC: ONC/OP 11:29
PROVIDERS: ATTEND Internal Medicine Hematology & Oncology
DX: Z51.11 Encounter for antineoplastic chemotherapy (principal); C15.3 Malignant neoplasm of upper third of esophagus; C34.12 Malignant neoplasm of upper lobe, left bronchus or lung; D50.0 Iron deficiency anemia secondary to blood loss (chronic); E83.52 Hypercalcemia
CPT/HCPCS: 36415; 80053; 82248; 82378; 83615; 84100; 84550; 96375; 96413; 96415; 96417; J1100; J2469; J7070; J9190; J9263

== ENCOUNTER 2021-03-03 10:39 | Day surgery (SDC) | payer MEDICARE, OTHER ==
[~2021-03-03 10:39] MED LIST changes: +CISPLATIN IV SCH; +DEXTROSE 5% IV SCH; -OXALIPLATIN IVPB SCH; -Pembrolizumab 400 MG in Sodium Chloride 0.9% 250 ML 250 ML IV SCH; +WATER IV SCH
[2021-03-03] MEDS ORDERED: Sodium Chloride 0.9% 20 ML ONE (10:58)
[2021-03-03] MEDS ORDERED: OXALIPLATIN IVPB SCH (11:00)
[2021-03-03] MEDS ORDERED: DEXTROSE 5% IVPB SCH (11:00)
[2021-03-03] MEDS ORDERED: WATER IVPB SCH (11:00)
== END 2021-03-03 14:22 | disposition home or self-care (01) ==
LOC: ONC/OP 10:39
PROVIDERS: ATTEND Internal Medicine Hematology & Oncology
DX: Z51.11 Encounter for antineoplastic chemotherapy (principal); C15.3 Malignant neoplasm of upper third of esophagus; C34.12 Malignant neoplasm of upper lobe, left bronchus or lung; D50.0 Iron deficiency anemia secondary to blood loss (chronic); E83.52 Hypercalcemia
CPT/HCPCS: 96375; 96413; 96415; 96416; 96417; J1100; J2469; J7070; J9190; J9263

== ENCOUNTER 2021-04-25 09:36 | Inpatient (IN) | payer MEDICARE, OTHER ==
[2021-04-25] MEDS ORDERED: Iopamidol-370 76% 500 ML 1 ML ONE (10:49)
[2021-04-25 10:52] LABS: Anion Gap 16 mmol/L (10-20); BUN (Urea Nitrogen) 9 mg/dL (8.4-25.7); Calc. Creatinine Clearance 0 mL/min (70-130); Carbon Dioxide 22 mmol/L (22-29); Chloride 98 mmol/L (98-107); Sodium 134 mmol/L (136-145)
[2021-04-25 10:53] LABS: ALT (SGPT) Less than 7 U/L (8-55); AST (SGOT) 9 U/L (5-34); Albumin 2.9 g/dL (3.5-5.0); Alkaline Phosphatase 64 U/L (40-110); Bilirubin, Total 0.9 mg/dL (0.2-1.2); Calcium 8.1 mg/dL (7.8-10.44); Glucose 161 mg/dL (70-105); Protein, Total 6.9 g/dL (6.0-8.3)
[2021-04-25 11:03] LABS: Potassium 2.1 mmol/L (3.5-5.1)
[2021-04-25 11:12] LABS: Bilirubin Negative (Negative); Blood, Urine Negative (Negative); Clarity Clear (Clear); Glucose, Urine (Dipstick) >=1000 mg/dL (Negative); Ketone, Urine Negative (Negative); Leukocyte Negative Leu/uL (Negative); Nitrite Negative (Negative); Protein, Urine (Dipstick) 50 mg/dL (Neg-Trace); RBC/HPF 0-3 HPF (0-3); Squamous Epithelial 0-3 HPF (0-3); Urobilinogen Normal mg/dL (Less than 2)
[2021-04-25 11:13] LABS: Bacteria/HPF 1+ HPF (None Seen)
[2021-04-25 11:20] LABS: Anisocytosis MODERATE=16-30 cells (100X) (0-5/hpf); Hemoglobin 8.9 g/dL (14.0-18.0); MDiff Complete? YES; Mean Corpuscular HGB CONC 31.9 g/dL (32.0-36.0); Mean Corpuscular Hemoglobin 22.8 pg (27.0-31.0); Mean Corpuscular Volume 71.4 fL (78.0-98.0); Microcytosis SLIGHT = 6-15 cells (100X) (0-5/hpf); Ovalocytes SLIGHT = 2-5 cells (100X) (0-1/hpf); Platelet Count 125 thou/uL (130-400); RBC Distribution Width 18.6 % (11.5-14.5); Red Blood Cell (RBC) Count 3.91 mill/uL (4.70-6.10); Small Platelets MODERATE; Target Cells SLIGHT = 2-5 cells (100X) (0-1/hpf); White Blood Cell (WBC) Count 0.4 thou/uL (4.8-10.8)
[2021-04-25] MEDS ORDERED: Cefepime 2 GM VIAL ONE ×2 (11:38→11:44)
[2021-04-25] MEDS ORDERED: Potassium Chloride 20 MEQ/100 ML PREMIX BAG ONE ×2 (11:39→14:41)
[2021-04-25] MEDS ORDERED: Vancomycin 1.5 GRAM/300 ML BAG 1.5 GM in Premix Bag 1 BAG IVPB SCH (12:00)
[2021-04-25 12:27] LABS: Magnesium 1.9 mg/dL (1.6-2.6)
[2021-04-25] MEDS ORDERED: Acetaminophen 325 MG TAB PO PRN (13:55)
[2021-04-25] MEDS ORDERED: HumaLOG 300 UNITS/3 ML VIAL SC PRN ×2 (13:55)
[2021-04-25] MEDS ORDERED: hydrALAZINE 20 MG/ML VIAL SLOW IVP PRN (13:55)
[2021-04-25] MEDS ORDERED: Metoclopramide HCl 10 MG/2 ML VIAL IVP PRN (13:59)
[2021-04-25] MEDS ORDERED: Electrolyte Replacement Protocol 1 EACH FS PRN (14:15)
[2021-04-25 14:48] LABS: Lactic Acid 2.8 mmol/L (0.5-2.2)
[2021-04-25] MEDS: NS 0.9% w/ 40 MEQ KCL 1,000 ML IV SCH (15:53)
[2021-04-25 18:20] LABS: Lactic Acid 3.2 mmol/L (0.5-2.2)
[2021-04-25 18:23] LABS: Anion Gap 18 mmol/L (10-20); BUN (Urea Nitrogen) 10 mg/dL (8.4-25.7); Calc. Creatinine Clearance 54 mL/min (70-130); Calcium 8.1 mg/dL (7.8-10.44); Carbon Dioxide 17 mmol/L (22-29); Chloride 101 mmol/L (98-107); Glucose 149 mg/dL (70-105); Sodium 133 mmol/L (136-145)
[2021-04-25 18:33] LABS: Potassium 2.7 mmol/L (3.5-5.1)
[2021-04-25] MEDS: Apixaban 5 MG TAB PO SCH (21:05)
[2021-04-25] MEDS: Cefepime 2 GM in Sodium Chloride 0.9% 100 ML IVPB SCH (21:05)
[2021-04-26] MEDS: Vancomycin HCl 750 MG in Sodium Chloride 0.9% 250 ML 250 ML IVPB SCH ×2 (00:53→13:56)
[2021-04-26] MEDS: Vancomycin HCl 25 MG/ML Oral PO SCH ×5 (00:53→23:07)
[2021-04-26 01:01] LABS: SARS-CoV-2 PCR by NAA Not Detected (NotDetected)
[2021-04-26] MEDS: Cefepime 2 GM in Sodium Chloride 0.9% 100 ML IVPB SCH ×3 (04:53→21:37)
[2021-04-26] MEDS: NS 0.9% w/ 40 MEQ KCL 1,000 ML IV SCH ×2 (05:13→13:57)
[2021-04-26 05:16] LABS: Hemoglobin 9.2 g/dL (14.0-18.0); Mean Corpuscular HGB CONC 31.6 g/dL (32.0-36.0); Mean Corpuscular Hemoglobin 22.7 pg (27.0-31.0); Mean Corpuscular Volume 71.8 fL (78.0-98.0); Mean Platelet Volume 4.5 fL (7.4-10.4); Platelet Count 132 thou/uL (130-400); RBC Distribution Width 18.5 % (11.5-14.5); Red Blood Cell (RBC) Count 4.06 mill/uL (4.70-6.10); White Blood Cell (WBC) Count 0.6 thou/uL (4.8-10.8)
[2021-04-26 05:17] LABS: Lactic Acid 2.4 mmol/L (0.5-2.2)
[2021-04-26 05:20] LABS: Anion Gap 15 mmol/L (10-20); BUN (Urea Nitrogen) 11 mg/dL (8.4-25.7); Calc. Creatinine Clearance 53 mL/min (70-130); Calcium 8.1 mg/dL (7.8-10.44); Carbon Dioxide 19 mmol/L (22-29); Chloride 103 mmol/L (98-107); Glucose 138 mg/dL (70-105); Magnesium 1.8 mg/dL (1.6-2.6); Sodium 134 mmol/L (136-145)
[2021-04-26 05:23] LABS: Phosphorus 1.7 mg/dL (2.3-4.7); Potassium 2.8 mmol/L (3.5-5.1)
[2021-04-26] MEDS ORDERED: Potassium Phosphate 15 MMOL in Sodium Chloride 0.9% 250 ML 250 ML IVPB SCH (05:45)
[2021-04-26] MEDS ORDERED: Potassium Chloride 40 MEQ in Sodium Chloride 0.9% 250 ML 250 ML IVPB SCH (05:45)
[2021-04-26] MEDS ORDERED: Magnesium 2 GM/50 ML 2 GM in Premix Bag 1 BAG IVPB SCH (05:45)
[2021-04-26 06:53] LABS: Anisocytosis SLIGHT = 6-15 cells (100X) (0-5/hpf); Lymphocytes 76 % (21-51); MDiff Complete? YES; Monocytes 12 % (0-10); Neutrophil 12 % (42-75)
[2021-04-26] MEDS: Apixaban 5 MG TAB PO SCH ×2 (08:20→21:37)
[2021-04-26 17:09] LABS: Potassium 3.1 mmol/L (3.5-5.1)
[2021-04-26] MEDS ORDERED: Potassium Phosphate 30 MMOL in Sodium Chloride 0.9% 500 ML IVPB SCH (18:00)
[2021-04-26] MEDS: Saccharomyces boulardii 250 MG CAP PO SCH (21:37)
[2021-04-27] MEDS: NS 0.9% w/ 40 MEQ KCL 1,000 ML IV SCH (00:57)
[2021-04-27] MEDS: Cefepime 2 GM in Sodium Chloride 0.9% 100 ML IVPB SCH ×3 (03:37→21:48)
[2021-04-27 05:13] LABS: Hemoglobin 8.4 g/dL (14.0-18.0); Mean Corpuscular HGB CONC 31.4 g/dL (32.0-36.0); Mean Corpuscular Hemoglobin 22.5 pg (27.0-31.0); Mean Corpuscular Volume 71.6 fL (78.0-98.0); Platelet Count 150 thou/uL (130-400); Red Blood Cell (RBC) Count 3.73 mill/uL (4.70-6.10); White Blood Cell (WBC) Count 0.7 thou/uL (4.8-10.8)
[2021-04-27] MEDS: Levothyroxine Sodium 25 MCG TAB PO SCH (05:44)
[2021-04-27 05:56] LABS: ALT (SGPT) Less than 7 U/L (8-55); AST (SGOT) 10 U/L (5-34); Albumin 2.1 g/dL (3.5-5.0); Alkaline Phosphatase 53 U/L (40-110); Anion Gap 10 mmol/L (10-20); BUN (Urea Nitrogen) 13 mg/dL (8.4-25.7); Bilirubin, Total 0.5 mg/dL (0.2-1.2); Calc. Creatinine Clearance 59 mL/min (70-130); Calcium 7.1 mg/dL (7.8-10.44); Carbon Dioxide 16 mmol/L (22-29); Chloride 109 mmol/L (98-107); Globulin 3.4 g/dL (2.4-3.5); Glucose 163 mg/dL (70-105); Magnesium 1.8 mg/dL (1.6-2.6); Phosphorus 3.4 mg/dL (2.3-4.7); Potassium 3.3 mmol/L (3.5-5.1); Protein, Total 5.5 g/dL (6.0-8.3); Sodium 132 mmol/L (136-145)
[2021-04-27] MEDS ORDERED: Magnesium 2 GM/50 ML 2 GM in Premix Bag 1 BAG IVPB SCH (06:15)
[2021-04-27] MEDS ORDERED: Potassium Chloride 20 MEQ TAB PO SCH ×2 (06:30→17:00)
[2021-04-27] MEDS: Vancomycin HCl 25 MG/ML Oral PO SCH ×3 (06:32→17:59)
[2021-04-27 08:27] LABS: Band 28 % (5-11); Eosinophils 4 % (0-10); Hypochromia SLIGHT = 6-15 cells (100X) (0-5/hpf); Lymphocytes 24 % (21-51); MDiff Complete? YES; Metamyelocyte 4 % (0-0); Microcytosis MODERATE=15-30 cells (100X) (0-5/hpf); Monocytes 24 % (0-10); Neutrophil 8 % (42-75); Platelet Morphology Comment Appears Adequate; Polychromasia SLIGHT = 2-3 cells (100X) (0-2/hpf); Reactive Lymphocytes 4 % (0-10); Schistocytes SLIGHT = 2-5 cells (100X) (0-1/hpf); Toxic Granulation SLIGHT; Vacuoles SLIGHT
[2021-04-27] MEDS: Apixaban 5 MG TAB PO SCH ×2 (08:27→21:48)
[2021-04-27] MEDS: Saccharomyces boulardii 250 MG CAP PO SCH ×2 (08:27→21:48)
[2021-04-27] MEDS ORDERED: Sodium Chloride 0.9% 500 ML IV SCH (08:45)
[2021-04-27] MEDS: NS 0.9% w/ 20 MEQ KCL 1,000 ML/1,000 ML BAG IV SCH ×3 (11:27→18:17)
[2021-04-27 18:36] LABS: Anion Gap 10 mmol/L (10-20); BUN (Urea Nitrogen) 13 mg/dL (8.4-25.7); Calc. Creatinine Clearance 66 mL/min (70-130); Calcium 7.5 mg/dL (7.8-10.44); Carbon Dioxide 18 mmol/L (22-29); Chloride 108 mmol/L (98-107); Glucose 121 mg/dL (70-105); Potassium 3.7 mmol/L (3.5-5.1); Sodium 132 mmol/L (136-145)
[2021-04-28] MEDS: Vancomycin HCl 25 MG/ML Oral PO SCH ×4 (00:31→18:13)
[2021-04-28] MEDS: NS 0.9% w/ 20 MEQ KCL 1,000 ML/1,000 ML BAG IV SCH (00:33)
[2021-04-28] MEDS: Cefepime 2 GM in Sodium Chloride 0.9% 100 ML IVPB SCH (03:32)
[2021-04-28 04:28] LABS: ALT (SGPT) 7 U/L (8-55); AST (SGOT) 9 U/L (5-34); Albumin 2.1 g/dL (3.5-5.0); Alkaline Phosphatase 59 U/L (40-110); Anion Gap 9 mmol/L (10-20); BUN (Urea Nitrogen) 13 mg/dL (8.4-25.7); Bilirubin, Total 0.4 mg/dL (0.2-1.2); Calc. Creatinine Clearance 67 mL/min (70-130); Calcium 7.4 mg/dL (7.8-10.44); Carbon Dioxide 15 mmol/L (22-29); Chloride 115 mmol/L (98-107); Globulin 3.5 g/dL (2.4-3.5); Glucose 100 mg/dL (70-105); Magnesium 2.1 mg/dL (1.6-2.6); Phosphorus 1.9 mg/dL (2.3-4.7); Potassium 3.9 mmol/L (3.5-5.1); Protein, Total 5.6 g/dL (6.0-8.3); Sodium 135 mmol/L (136-145)
[2021-04-28] MEDS: Levothyroxine Sodium 25 MCG TAB PO SCH (04:55)
[2021-04-28 05:13] LABS: Anisocytosis SLIGHT = 6-15 cells (100X) (0-5/hpf); Band 20 % (5-11); Hemoglobin 8.3 g/dL (14.0-18.0); Lymphocytes 32 % (21-51); MDiff Complete? YES; Mean Corpuscular HGB CONC 31.9 g/dL (32.0-36.0); Mean Platelet Volume 5.2 fL (7.4-10.4); Metamyelocyte 2 % (0-0); Monocytes 8 % (0-10); Neutrophil 38 % (42-75); Platelet Count 149 thou/uL (130-400); Red Blood Cell (RBC) Count 3.59 mill/uL (4.70-6.10); White Blood Cell (WBC) Count 1.3 thou/uL (4.8-10.8)
[2021-04-28] MEDS ORDERED: Potassium Phosphate 15 MMOL in Sodium Chloride 0.9% 250 ML 250 ML IVPB SCH (06:00)
[2021-04-28] MEDS: Apixaban 5 MG TAB PO SCH ×2 (08:23→21:07)
[2021-04-28] MEDS: Saccharomyces boulardii 250 MG CAP PO SCH ×2 (08:23→21:07)
[2021-04-28] MEDS ORDERED: Lactated Ringer's 1,000 ML IV SCH (09:30)
[2021-04-28] MEDS: Potassium Chloride 20 MEQ in Lactated Ringer's 1,000 ML IV SCH (11:02)
[2021-04-28] MEDS: Sodium Bicarbonate Tab 325 MG TAB PO SCH ×2 (15:44→21:06)
[2021-04-28] MEDS ORDERED: Potassium Chloride 20 MEQ TAB PO SCH (17:00)
[2021-04-29] MEDS: Potassium Chloride 20 MEQ in Lactated Ringer's 1,000 ML IV SCH (00:47)
[2021-04-29] MEDS: Vancomycin HCl 25 MG/ML Oral PO SCH ×5 (00:49→23:59)
[2021-04-29 05:09] LABS: Hemoglobin 7.9 g/dL (14.0-18.0); Mean Corpuscular HGB CONC 31.9 g/dL (32.0-36.0); Mean Corpuscular Hemoglobin 22.9 pg (27.0-31.0); Mean Corpuscular Volume 71.9 fL (78.0-98.0); Mean Platelet Volume 5.9 fL (7.4-10.4); Platelet Count 161 thou/uL (130-400); RBC Distribution Width 19.3 % (11.5-14.5); Red Blood Cell (RBC) Count 3.46 mill/uL (4.70-6.10)
[2021-04-29 05:30] LABS: ALT (SGPT) Less than 7 U/L (8-55); AST (SGOT) 7 U/L (5-34); Albumin 2.1 g/dL (3.5-5.0); Alkaline Phosphatase 61 U/L (40-110); Anion Gap 11 mmol/L (10-20); BUN (Urea Nitrogen) 10 mg/dL (8.4-25.7); Bilirubin, Total 0.3 mg/dL (0.2-1.2); Calc. Creatinine Clearance 73 mL/min (70-130); Calcium 8.1 mg/dL (7.8-10.44); Carbon Dioxide 16 mmol/L (22-29); Chloride 115 mmol/L (98-107); Globulin 3.5 g/dL (2.4-3.5); Glucose 154 mg/dL (70-105); Magnesium 2.1 mg/dL (1.6-2.6); Phosphorus 1.3 mg/dL (2.3-4.7); Protein, Total 5.6 g/dL (6.0-8.3); Sodium 138 mmol/L (136-145)
[2021-04-29] MEDS: Levothyroxine Sodium 25 MCG TAB PO SCH (05:40)
[2021-04-29] MEDS ORDERED: Potassium Phosphate 22 MMOL in Sodium Chloride 0.9% 250 ML 250 ML IVPB SCH (06:00)
[2021-04-29 06:01] LABS: Band 38 % (5-11); Eosinophils 1 % (0-10); Lymphocytes 17 % (21-51); MDiff Complete? YES; Metamyelocyte 2 % (0-0); Monocytes 9 % (0-10); Neutrophil 32 % (42-75); Reactive Lymphocytes 1 % (0-10)
[2021-04-29] MEDS ORDERED: HumaLOG 300 UNITS/3 ML VIAL SC PRN (09:13)
[2021-04-29] MEDS: Apixaban 5 MG TAB PO SCH ×2 (09:49→20:31)
[2021-04-29] MEDS: FLUoxetine HCl 20 MG CAP PO SCH (09:49)
[2021-04-29] MEDS: Saccharomyces boulardii 250 MG CAP PO SCH ×2 (09:49→20:31)
[2021-04-29] MEDS: Sodium Bicarbonate 150 MEQ in Dextrose 5% in Water 1,000 ML IV SCH (09:52)
[2021-04-29] MEDS: Sodium Bicarbonate Tab 325 MG TAB PO SCH (10:18)
[2021-04-29] MEDS: Potassium Chloride 20 MEQ TAB PO SCH (16:00)
[2021-04-30] MEDS: Sodium Bicarbonate 150 MEQ in Dextrose 5% in Water 1,000 ML IV SCH (02:09)
[2021-04-30 04:18] LABS: Hemoglobin 8.1 g/dL (14.0-18.0); Mean Corpuscular HGB CONC 31.2 g/dL (32.0-36.0); Mean Corpuscular Hemoglobin 22.3 pg (27.0-31.0); Mean Corpuscular Volume 71.5 fL (78.0-98.0); Platelet Count 152 thou/uL (130-400); RBC Distribution Width 19.8 % (11.5-14.5); Red Blood Cell (RBC) Count 3.63 mill/uL (4.70-6.10); White Blood Cell (WBC) Count 6.4 thou/uL (4.8-10.8)
[2021-04-30 04:25] LABS: ALT (SGPT) 7 U/L (8-55); AST (SGOT) 11 U/L (5-34); Albumin 2.1 g/dL (3.5-5.0); Alkaline Phosphatase 58 U/L (40-110); Anion Gap 11 mmol/L (10-20); BUN (Urea Nitrogen) 5 mg/dL (8.4-25.7); Bilirubin, Total 0.3 mg/dL (0.2-1.2); Calc. Creatinine Clearance 73 mL/min (70-130); Calcium 7.9 mg/dL (7.8-10.44); Carbon Dioxide 17 mmol/L (22-29); Chloride 108 mmol/L (98-107); Globulin 3.6 g/dL (2.4-3.5); Glucose 199 mg/dL (70-105); Magnesium 1.8 mg/dL (1.6-2.6); Potassium 3.4 mmol/L (3.5-5.1); Protein, Total 5.7 g/dL (6.0-8.3); Sodium 133 mmol/L (136-145)
[2021-04-30 04:27] LABS: Phosphorus 1.1 mg/dL (2.3-4.7)
[2021-04-30] MEDS: Levothyroxine Sodium 25 MCG TAB PO SCH (06:00)
[2021-04-30] MEDS: Vancomycin HCl 25 MG/ML Oral PO SCH ×3 (06:00→17:05)
[2021-04-30 06:30] LABS: Anisocytosis SLIGHT = 6-15 cells (100X) (0-5/hpf); Band 33 % (5-11); Lymphocytes 19 % (21-51); MDiff Complete? YES; Monocytes 2 % (0-10); Neutrophil 46 % (42-75)
[2021-04-30] MEDS ORDERED: Magnesium 2 GM/50 ML 2 GM in Premix Bag 1 BAG IVPB SCH (06:30)
[2021-04-30] MEDS: PHOS-NAK 1 PKT PACK PO SCH ×4 (08:22→18:02)
[2021-04-30] MEDS: Saccharomyces boulardii 250 MG CAP PO SCH ×2 (08:23→20:19)
[2021-04-30] MEDS: Potassium Chloride 20 MEQ TAB PO SCH ×2 (08:25→17:05)
[2021-04-30] MEDS: Apixaban 5 MG TAB PO SCH ×2 (08:25→20:19)
[2021-04-30] MEDS: FLUoxetine HCl 20 MG CAP PO SCH (08:26)
[2021-04-30 13:49] VITALS: BMI 18.4
[2021-04-30] MEDS: 1/2 NS w/KCL 20 mEq 1,000 ML IV SCH (14:42)
[2021-05-01] MEDS: Vancomycin HCl 25 MG/ML Oral PO SCH ×5 (02:16→23:42)
[2021-05-01] MEDS: 1/2 NS w/KCL 20 mEq 1,000 ML IV SCH ×3 (02:16→23:39)
[2021-05-01 04:29] LABS: Anion Gap 12 mmol/L (10-20); BUN (Urea Nitrogen) Less than 4 mg/dL (8.4-25.7); Calc. Creatinine Clearance 84 mL/min (70-130); Carbon Dioxide 20 mmol/L (22-29); Chloride 106 mmol/L (98-107); Glucose 84 mg/dL (70-105); Potassium 3.2 mmol/L (3.5-5.1); Sodium 135 mmol/L (136-145)
[2021-05-01 04:30] LABS: Band 34 % (5-11); Hemoglobin 8.7 g/dL (14.0-18.0); Hypochromia SLIGHT = 6-15 cells (100X) (0-5/hpf); Lymphocytes 8 % (21-51); MDiff Complete? YES; Mean Corpuscular Hemoglobin 23.4 pg (27.0-31.0); Mean Corpuscular Volume 70.9 fL (78.0-98.0); Mean Platelet Volume 5.8 fL (7.4-10.4); Microcytosis SLIGHT = 6-15 cells (100X) (0-5/hpf); Monocytes 8 % (0-10); Neutrophil 50 % (42-75); Platelet Count 170 thou/uL (130-400); Platelet Morphology Comment Appears Adequate; RBC Distribution Width 20.1 % (11.5-14.5); Red Blood Cell (RBC) Count 3.73 mill/uL (4.70-6.10); White Blood Cell (WBC) Count 17.5 thou/uL (4.8-10.8)
[2021-05-01 04:35] LABS: Phosphorus 1.2 mg/dL (2.3-4.7)
[2021-05-01] MEDS ORDERED: Magnesium 2 GM/50 ML 2 GM in Premix Bag 1 BAG IVPB SCH (05:00)
[2021-05-01] MEDS ORDERED: Potassium Phosphate 22 MMOL in Sodium Chloride 0.9% 250 ML 250 ML IVPB SCH (05:00)
[2021-05-01] MEDS ORDERED: Potassium Chloride 10 MEQ in Premix Bag 1 BAG IVPB SCH (05:00)
[2021-05-01] MEDS: Levothyroxine Sodium 25 MCG TAB PO SCH (06:17)
[2021-05-01] MEDS: Potassium Chloride 20 MEQ TAB PO SCH ×2 (09:49→17:13)
[2021-05-01] MEDS: FLUoxetine HCl 20 MG CAP PO SCH (09:50)
[2021-05-01] MEDS: Saccharomyces boulardii 250 MG CAP PO SCH ×2 (09:50→20:38)
[2021-05-01] MEDS: Apixaban 5 MG TAB PO SCH ×2 (09:57→20:38)
[2021-05-02 04:17] LABS: Anion Gap 10 mmol/L (10-20); BUN (Urea Nitrogen) Less than 4 mg/dL (8.4-25.7); Calc. Creatinine Clearance 83 mL/min (70-130); Calcium 8.2 mg/dL (7.8-10.44); Carbon Dioxide 21 mmol/L (22-29); Chloride 107 mmol/L (98-107); Glucose 73 mg/dL (70-105); Magnesium 2.1 mg/dL (1.6-2.6); Phosphorus 1.9 mg/dL (2.3-4.7); Potassium 3.7 mmol/L (3.5-5.1); Sodium 134 mmol/L (136-145)
[2021-05-02 04:28] LABS: Band 24 % (5-11); Hemoglobin 9.5 g/dL (14.0-18.0); Lymphocytes 2 % (21-51); MDiff Complete? YES; Mean Corpuscular HGB CONC 31.4 g/dL (32.0-36.0); Mean Corpuscular Hemoglobin 22.6 pg (27.0-31.0); Mean Corpuscular Volume 71.8 fL (78.0-98.0); Mean Platelet Volume 5.3 fL (7.4-10.4); Metamyelocyte 1 % (0-0); Monocytes 7 % (0-10); Neutrophil 66 % (42-75); Platelet Count 176 thou/uL (130-400); Platelet Morphology Comment Appears Adequate; RBC Distribution Width 20.5 % (11.5-14.5); White Blood Cell (WBC) Count 33.4 thou/uL (4.8-10.8)
[2021-05-02] MEDS: Levothyroxine Sodium 25 MCG TAB PO SCH (05:55)
[2021-05-02] MEDS: Vancomycin HCl 25 MG/ML Oral PO SCH ×4 (05:55→23:18)
[2021-05-02] MEDS: PHOS-NAK 1 PKT PACK PO SCH ×2 (06:33→11:18)
[2021-05-02] MEDS: Potassium Chloride 20 MEQ TAB PO SCH ×2 (09:19→16:58)
[2021-05-02] MEDS: Saccharomyces boulardii 250 MG CAP PO SCH ×2 (09:19→20:17)
[2021-05-02] MEDS: FLUoxetine HCl 20 MG CAP PO SCH (09:19)
[2021-05-02] MEDS: Apixaban 5 MG TAB PO SCH ×2 (09:19→20:17)
[2021-05-02] MEDS ORDERED: Potassium Phosphate 30 MMOL in Sodium Chloride 0.9% 250 ML 250 ML IVPB SCH (15:00)
[2021-05-02] MEDS: 1/2 NS w/KCL 20 mEq 1,000 ML IV SCH (23:18)
[2021-05-03] MEDS: Levothyroxine Sodium 25 MCG TAB PO SCH (05:19)
[2021-05-03] MEDS: Vancomycin HCl 25 MG/ML Oral PO SCH ×3 (05:19→17:19)
[2021-05-03 05:52] LABS: Hemoglobin 8.4 g/dL (14.0-18.0); Mean Corpuscular HGB CONC 30.6 g/dL (32.0-36.0); Mean Corpuscular Hemoglobin 21.8 pg (27.0-31.0); Mean Corpuscular Volume 71.2 fL (78.0-98.0); Mean Platelet Volume 5.1 fL (7.4-10.4); Platelet Count 194 thou/uL (130-400); RBC Distribution Width 20.7 % (11.5-14.5); Red Blood Cell (RBC) Count 3.84 mill/uL (4.70-6.10); White Blood Cell (WBC) Count 29.4 thou/uL (4.8-10.8)
[2021-05-03 05:53] LABS: Band 29 % (5-11); Lymphocytes 12 % (21-51); MDiff Complete? YES; Monocytes 7 % (0-10); Neutrophil 52 % (42-75); Platelet Morphology Comment Appears Adequate
[2021-05-03 06:12] LABS: Anion Gap 10 mmol/L (10-20); BUN (Urea Nitrogen) Less than 4 mg/dL (8.4-25.7); Calc. Creatinine Clearance 90 mL/min (70-130); Calcium 7.9 mg/dL (7.8-10.44); Carbon Dioxide 22 mmol/L (22-29); Chloride 108 mmol/L (98-107); Glucose 73 mg/dL (70-105); Phosphorus 3.3 mg/dL (2.3-4.7); Potassium 4.6 mmol/L (3.5-5.1); Sodium 135 mmol/L (136-145)
[2021-05-03] MEDS: Saccharomyces boulardii 250 MG CAP PO SCH ×2 (10:55→21:26)
[2021-05-03] MEDS: FLUoxetine HCl 20 MG CAP PO SCH (10:56)
[2021-05-03] MEDS: Apixaban 5 MG TAB PO SCH ×2 (10:56→21:26)
[2021-05-03] MEDS: Potassium Chloride 20 MEQ TAB PO SCH ×2 (10:56→17:19)
[2021-05-03] MEDS ORDERED: EPOETIN ALFA-EPBX (NON-ESRD) 10,000 UNIT/ML VIAL ONE (10:57)
[2021-05-03] MEDS: 1/2 NS w/KCL 20 mEq 1,000 ML IV SCH (12:31)
[2021-05-03 19:54] LABS: SARS-CoV-2 PCR by NAA Not Detected (NotDetected)
[2021-05-04] MEDS: Vancomycin HCl 25 MG/ML Oral PO SCH ×5 (00:29→23:54)
[2021-05-04] MEDS: 1/2 NS w/KCL 20 mEq 1,000 ML IV SCH ×3 (03:31→18:07)
[2021-05-04 04:25] LABS: Anion Gap 5 mmol/L (10-20); BUN (Urea Nitrogen) Less than 4 mg/dL (8.4-25.7); Calc. Creatinine Clearance 86 mL/min (70-130); Calcium 8.3 mg/dL (7.8-10.44); Carbon Dioxide 26 mmol/L (22-29); Chloride 108 mmol/L (98-107); Glucose 64 mg/dL (70-105); Potassium 4.3 mmol/L (3.5-5.1); Sodium 135 mmol/L (136-145)
[2021-05-04 05:00] LABS: Band 11 % (5-11); Bite Cells SLIGHT = 2-5 cells (100X) (0-1/hpf); Blister Cells SLIGHT = 2-5 cells (100X) (0-1/hpf); Burr Cells SLIGHT = 2-5 cells (100X) (0-1/hpf); Hemoglobin 8.8 g/dL (14.0-18.0); Hypochromia SLIGHT = 6-15 cells (100X) (0-5/hpf); Lymphocytes 9 % (21-51); MDiff Complete? YES; Mean Corpuscular Hemoglobin 22.2 pg (27.0-31.0); Mean Corpuscular Volume 71.5 fL (78.0-98.0); Mean Platelet Volume 6.2 fL (7.4-10.4); Metamyelocyte 1 % (0-0); Microcytosis SLIGHT = 6-15 cells (100X) (0-5/hpf); Monocytes 3 % (0-10); Myelocyte 2 % (0-0); Neutrophil 73 % (42-75); Nucleated RBC 1 % (0); Platelet Count 206 thou/uL (130-400); Platelet Morphology Comment Appears Adequate; Polychromasia MODERATE = 3-4 cells (100X) (0-2/hpf); RBC Distribution Width 21.1 % (11.5-14.5); Reactive Lymphocytes 1 % (0-10); Red Blood Cell (RBC) Count 3.97 mill/uL (4.70-6.10); Schistocytes SLIGHT = 2-5 cells (100X) (0-1/hpf); White Blood Cell (WBC) Count 23.5 thou/uL (4.8-10.8)
[2021-05-04] MEDS: Levothyroxine Sodium 25 MCG TAB PO SCH (05:38)
[2021-05-04] MEDS: Apixaban 5 MG TAB PO SCH ×2 (09:46→20:44)
[2021-05-04] MEDS: Potassium Chloride 20 MEQ TAB PO SCH ×2 (09:46→17:33)
[2021-05-04] MEDS: FLUoxetine HCl 20 MG CAP PO SCH (09:46)
[2021-05-04] MEDS: Saccharomyces boulardii 250 MG CAP PO SCH ×2 (09:46→20:44)
[2021-05-05] MEDS: Vancomycin HCl 25 MG/ML Oral PO SCH ×3 (05:47→19:11)
[2021-05-05] MEDS: Levothyroxine Sodium 25 MCG TAB PO SCH (05:47)
[2021-05-05] MEDS: Dextrose 5% in Water 1,000 ML IV PRN (06:45)
[2021-05-05] MEDS: Dextrose 50% Abboject 50 ML SYRINGE SLOW IVP PRN (07:12)
[2021-05-05] MEDS: 1/2 NS w/KCL 20 mEq 1,000 ML IV SCH ×2 (07:17→21:43)
[2021-05-05] MEDS: Saccharomyces boulardii 250 MG CAP PO SCH ×2 (08:33→20:28)
[2021-05-05] MEDS: Potassium Chloride 20 MEQ TAB PO SCH ×2 (08:33→19:11)
[2021-05-05] MEDS: FLUoxetine HCl 20 MG CAP PO SCH (08:33)
[2021-05-05 08:35] LABS: Hemoglobin 7.7 g/dL (14.0-18.0); Mean Corpuscular HGB CONC 30.8 g/dL (32.0-36.0); Mean Corpuscular Hemoglobin 22.1 pg (27.0-31.0); Mean Corpuscular Volume 71.8 fL (78.0-98.0); Mean Platelet Volume 4.8 fL (7.4-10.4); Platelet Count 197 thou/uL (130-400); RBC Distribution Width 20.7 % (11.5-14.5); Red Blood Cell (RBC) Count 3.46 mill/uL (4.70-6.10); White Blood Cell (WBC) Count 17.5 thou/uL (4.8-10.8)
[2021-05-05 08:50] LABS: Anion Gap 9 mmol/L (10-20); BUN (Urea Nitrogen) 7 mg/dL (8.4-25.7); Calc. Creatinine Clearance 79 mL/min (70-130); Calcium 8.2 mg/dL (7.8-10.44); Carbon Dioxide 23 mmol/L (22-29); Chloride 106 mmol/L (98-107); Glucose 211 mg/dL (70-105); Potassium 4.2 mmol/L (3.5-5.1); Sodium 134 mmol/L (136-145)
[2021-05-05 09:55] LABS: Band 17 % (5-11); Hypochromia SLIGHT = 6-15 cells (100X) (0-5/hpf); Lymphocytes 11 % (21-51); MDiff Complete? YES; Metamyelocyte 3 % (0-0); Microcytosis MODERATE=15-30 cells (100X) (0-5/hpf); Monocytes 2 % (0-10); Myelocyte 1 % (0-0); Neutrophil 66 % (42-75); Platelet Morphology Comment Appears Adequate; Polychromasia SLIGHT = 2-3 cells (100X) (0-2/hpf); Schistocytes SLIGHT = 2-5 cells (100X) (0-1/hpf)
[2021-05-05] MEDS ORDERED: Ondansetron PF 4 MG/2 ML Vial IVP PRN (11:48)
[2021-05-05] MEDS: Apixaban 5 MG TAB PO SCH ×2 (12:41→20:28)
[2021-05-06] MEDS: Vancomycin HCl 25 MG/ML Oral PO SCH ×5 (00:15→23:33)
[2021-05-06] MEDS: Levothyroxine Sodium 25 MCG TAB PO SCH (05:40)
[2021-05-06] MEDS: Dextrose 50% Abboject 50 ML SYRINGE SLOW IVP PRN (06:04)
[2021-05-06 06:24] LABS: Band 27 % (5-11); Hemoglobin 7.1 g/dL (14.0-18.0); Lymphocytes 13 % (21-51); MDiff Complete? YES; Mean Corpuscular HGB CONC 31.7 g/dL (32.0-36.0); Mean Corpuscular Hemoglobin 22.9 pg (27.0-31.0); Mean Corpuscular Volume 72.2 fL (78.0-98.0); Mean Platelet Volume 5.3 fL (7.4-10.4); Monocytes 5 % (0-10); Neutrophil 55 % (42-75); Nucleated RBC 1 % (0); Platelet Count 152 thou/uL (130-400); Platelet Morphology Comment Appears Adequate; RBC Distribution Width 20.9 % (11.5-14.5); Red Blood Cell (RBC) Count 3.08 mill/uL (4.70-6.10); White Blood Cell (WBC) Count 15.3 thou/uL (4.8-10.8)
[2021-05-06 06:25] LABS: Anion Gap 10 mmol/L (10-20); BUN (Urea Nitrogen) 7 mg/dL (8.4-25.7); Calc. Creatinine Clearance 84 mL/min (70-130); Calcium 8.7 mg/dL (7.8-10.44); Carbon Dioxide 24 mmol/L (22-29); Chloride 107 mmol/L (98-107); Glucose 69 mg/dL (70-105); Potassium 4.5 mmol/L (3.5-5.1); Sodium 136 mmol/L (136-145)
[2021-05-06] MEDS: Potassium Chloride 20 MEQ TAB PO SCH ×2 (09:15→17:21)
[2021-05-06] MEDS: Saccharomyces boulardii 250 MG CAP PO SCH ×2 (09:15→20:15)
[2021-05-06] MEDS: FLUoxetine HCl 20 MG CAP PO SCH (09:15)
[2021-05-06] MEDS: Apixaban 5 MG TAB PO SCH ×2 (09:16→20:16)
[2021-05-06 16:49] LABS: Hemoglobin 7.1 g/dL (14.0-18.0); Mean Corpuscular HGB CONC 30.5 g/dL (32.0-36.0); Mean Corpuscular Hemoglobin 21.9 pg (27.0-31.0); Mean Corpuscular Volume 72.1 fL (78.0-98.0); Mean Platelet Volume 7.1 fL (7.4-10.4); Platelet Count 182 thou/uL (130-400); RBC Distribution Width 20.9 % (11.5-14.5); Red Blood Cell (RBC) Count 3.22 mill/uL (4.70-6.10); White Blood Cell (WBC) Count 14.8 thou/uL (4.8-10.8)
[2021-05-06 17:14] LABS: Anisocytosis SLIGHT = 6-15 cells (100X) (0-5/hpf); Band 13 % (5-11); Hypochromia SLIGHT = 6-15 cells (100X) (0-5/hpf); Lymphocytes 10 % (21-51); MDiff Complete? YES; Metamyelocyte 3 % (0-0); Microcytosis SLIGHT = 6-15 cells (100X) (0-5/hpf); Monocytes 2 % (0-10); Myelocyte 1 % (0-0); Neutrophil 71 % (42-75); Ovalocytes SLIGHT = 2-5 cells (100X) (0-1/hpf); Platelet Morphology Comment Appears Adequate; Poikilocytosis SLIGHT = 6-15 cells (100X) (0-5/hpf); Polychromasia SLIGHT = 2-3 cells (100X) (0-2/hpf); Schistocytes SLIGHT = 2-5 cells (100X) (0-1/hpf)
[2021-05-07] MEDS: Vancomycin HCl 25 MG/ML Oral PO SCH ×3 (05:22→17:49)
[2021-05-07] MEDS: Levothyroxine Sodium 25 MCG TAB PO SCH (05:22)
[2021-05-07] MEDS: Dextrose 5% in Water 1,000 ML IV PRN (05:28)
[2021-05-07 05:52] LABS: Band 6 % (5-11); Hemoglobin 8.3 g/dL (14.0-18.0); Hypochromia SLIGHT = 6-15 cells (100X) (0-5/hpf); Lymphocytes 24 % (21-51); MDiff Complete? YES; Mean Corpuscular HGB CONC 30.6 g/dL (32.0-36.0); Mean Corpuscular Hemoglobin 22.9 pg (27.0-31.0); Mean Corpuscular Volume 74.9 fL (78.0-98.0); Mean Platelet Volume 5.6 fL (7.4-10.4); Metamyelocyte 1 % (0-0); Monocytes 4 % (0-10); Neutrophil 65 % (42-75); Platelet Count 172 thou/uL (130-400); Platelet Morphology Comment Appears Adequate; RBC Distribution Width 21.3 % (11.5-14.5); Red Blood Cell (RBC) Count 3.63 mill/uL (4.70-6.10); White Blood Cell (WBC) Count 13.7 thou/uL (4.8-10.8)
[2021-05-07 05:54] LABS: Anion Gap 11 mmol/L (10-20); BUN (Urea Nitrogen) 8 mg/dL (8.4-25.7); Calc. Creatinine Clearance 86 mL/min (70-130); Calcium 8.9 mg/dL (7.8-10.44); Carbon Dioxide 24 mmol/L (22-29); Chloride 105 mmol/L (98-107); Potassium 3.7 mmol/L (3.5-5.1); Sodium 136 mmol/L (136-145)
[2021-05-07 06:03] LABS: Glucose 56 mg/dL (70-105)
[2021-05-07 09:07] LABS: Hemoglobin A1c 7.3 % (4.0-6.0)
[2021-05-07] MEDS: Apixaban 5 MG TAB PO SCH ×2 (10:43→21:04)
[2021-05-07] MEDS: FLUoxetine HCl 20 MG CAP PO SCH (10:43)
[2021-05-07] MEDS: Saccharomyces boulardii 250 MG CAP PO SCH ×2 (10:43→21:04)
[2021-05-07] MEDS: Potassium Chloride 20 MEQ TAB PO SCH ×2 (10:43→17:49)
[2021-05-07] MEDS ORDERED: Iopamidol 370 76% 100 ML VIAL ONE (10:46)
[2021-05-07] MEDS: Dextrose 5% in Water 1,000 ML IV SCH (21:05)
[2021-05-08] MEDS: Vancomycin HCl 25 MG/ML Oral PO SCH ×5 (01:25→23:13)
[2021-05-08] MEDS: Levothyroxine Sodium 25 MCG TAB PO SCH (05:52)
[2021-05-08] MEDS: Dextrose 5% in Water 1,000 ML IV PRN (05:52)
[2021-05-08 06:20] LABS: Anion Gap 9 mmol/L (10-20); BUN (Urea Nitrogen) 8 mg/dL (8.4-25.7); Calc. Creatinine Clearance 86 mL/min (70-130); Calcium 8.8 mg/dL (7.8-10.44); Carbon Dioxide 26 mmol/L (22-29); Chloride 104 mmol/L (98-107); Glucose 61 mg/dL (70-105); Potassium 3.8 mmol/L (3.5-5.1); Sodium 135 mmol/L (136-145)
[2021-05-08] MEDS: Saccharomyces boulardii 250 MG CAP PO SCH ×2 (08:13→20:59)
[2021-05-08] MEDS: Potassium Chloride 20 MEQ TAB PO SCH ×2 (08:13→17:33)
[2021-05-08] MEDS: FLUoxetine HCl 20 MG CAP PO SCH (08:13)
[2021-05-08] MEDS: Apixaban 5 MG TAB PO SCH ×2 (08:18→20:59)
[2021-05-08 08:48] LABS: Hemoglobin 7.9 g/dL (14.0-18.0); Mean Corpuscular HGB CONC 30.1 g/dL (32.0-36.0); Mean Corpuscular Hemoglobin 22.8 pg (27.0-31.0); Mean Corpuscular Volume 75.7 fL (78.0-98.0); Mean Platelet Volume 7.6 fL (7.4-10.4); Platelet Count 170 thou/uL (130-400); RBC Distribution Width 21.8 % (11.5-14.5); Red Blood Cell (RBC) Count 3.45 mill/uL (4.70-6.10)
[2021-05-08 09:51] LABS: Band 18 % (5-11); Hypochromia SLIGHT = 6-15 cells (100X) (0-5/hpf); Lymphocytes 6 % (21-51); MDiff Complete? YES; Metamyelocyte 6 % (0-0); Microcytosis SLIGHT = 6-15 cells (100X) (0-5/hpf); Monocytes 7 % (0-10); Myelocyte 2 % (0-0); Neutrophil 59 % (42-75); Platelet Morphology Comment Appears Adequate; Polychromasia SLIGHT = 2-3 cells (100X) (0-2/hpf)
[2021-05-08] MEDS: Dextrose 5% in Water 1,000 ML IV SCH (17:34)
[2021-05-09] MEDS: metroNIDAZOLE 500 MG in Premix Bag 1 BAG IVPB SCH ×4 (01:48→23:55)
[2021-05-09] MEDS: Dextrose 5% in Water 1,000 ML IV SCH ×2 (01:48→23:55)
[2021-05-09] MEDS: Levothyroxine Sodium 25 MCG TAB PO SCH (06:49)
[2021-05-09] MEDS: Vancomycin HCl 25 MG/ML Oral PO SCH (06:49)
[2021-05-09] MEDS: FLUoxetine HCl 20 MG CAP PO SCH (11:07)
[2021-05-09] MEDS: Apixaban 5 MG TAB PO SCH ×2 (11:07→21:04)
[2021-05-09] MEDS: Saccharomyces boulardii 250 MG CAP PO SCH ×2 (11:07→21:04)
[2021-05-09] MEDS: Potassium Chloride 20 MEQ TAB PO SCH ×2 (11:07→18:30)
[2021-05-09] MEDS: Fidaxomicin 200 MG TAB PO SCH (21:04)
[2021-05-10] MEDS: metroNIDAZOLE 500 MG in Premix Bag 1 BAG IVPB SCH ×3 (07:34→23:05)
[2021-05-10] MEDS: Levothyroxine Sodium 25 MCG TAB PO SCH (07:35)
[2021-05-10] MEDS: Fidaxomicin 200 MG TAB PO SCH ×2 (09:23→20:52)
[2021-05-10] MEDS: Saccharomyces boulardii 250 MG CAP PO SCH ×2 (09:23→20:52)
[2021-05-10] MEDS: Potassium Chloride 20 MEQ TAB PO SCH ×2 (09:24→17:27)
[2021-05-10] MEDS: FLUoxetine HCl 20 MG CAP PO SCH (09:24)
[2021-05-10] MEDS: Apixaban 5 MG TAB PO SCH ×2 (09:24→20:53)
[2021-05-10 11:45] LABS: Anion Gap 10 mmol/L (10-20); BUN (Urea Nitrogen) 7 mg/dL (8.4-25.7); Calc. Creatinine Clearance 90 mL/min (70-130); Calcium 8.4 mg/dL (7.8-10.44); Carbon Dioxide 25 mmol/L (22-29); Chloride 103 mmol/L (98-107); Glucose 79 mg/dL (70-105); Potassium 3.3 mmol/L (3.5-5.1); Sodium 135 mmol/L (136-145)
[2021-05-10 11:50] LABS: #Basophils 0.1 thou/uL (0.0-0.2); #Eosinphils 0.1 thou/uL (0.0-0.7); #Monocytes 0.5 thou/uL (0.11-0.59); #Neutrophils 9.8 thou/uL (1.40-6.50); %Basophils 0.5 % (0.0-1.0); %Eosinophils 0.5 % (0.0-10.0); %Lymphocytes 8.8 % (21.0-51.0); %Monocytes 4.5 % (0.0-10.0); %Neutrophils 85.6 % (42.0-75.0); Anisocytosis MODERATE=16-30 cells (100X) (0-5/hpf); Hemoglobin 7.3 g/dL (14.0-18.0); MDiff Complete? YES; Mean Corpuscular HGB CONC 32.2 g/dL (32.0-36.0); Mean Corpuscular Hemoglobin 24.3 pg (27.0-31.0); Mean Corpuscular Volume 75.5 fL (78.0-98.0); Mean Platelet Volume 11.6 fL (7.4-10.4); Platelet Count 181 thou/uL (130-400); Poikilocytosis SLIGHT = 6-15 cells (100X) (0-5/hpf); Polychromasia SLIGHT = 2-3 cells (100X) (0-2/hpf); RBC Distribution Width 22.4 % (11.5-14.5); White Blood Cell (WBC) Count 11.5 thou/uL (4.8-10.8)
[2021-05-10] MEDS ORDERED: Potassium Chloride 20 MEQ TAB PO SCH (12:45)
[2021-05-11] MEDS: Levothyroxine Sodium 25 MCG TAB PO SCH (05:49)
[2021-05-11] MEDS: metroNIDAZOLE 500 MG in Premix Bag 1 BAG IVPB SCH ×3 (06:27→21:42)
[2021-05-11] MEDS: Potassium Chloride 20 MEQ TAB PO SCH ×2 (10:32→16:57)
[2021-05-11] MEDS: FLUoxetine HCl 20 MG CAP PO SCH (10:32)
[2021-05-11] MEDS: Saccharomyces boulardii 250 MG CAP PO SCH ×2 (10:32→21:41)
[2021-05-11] MEDS: Apixaban 5 MG TAB PO SCH ×2 (10:35→21:42)
[2021-05-11] MEDS: Fidaxomicin 200 MG TAB PO SCH ×2 (10:35→21:41)
[2021-05-11 11:07] LABS: #Basophils 0.1 thou/uL (0.0-0.2); #Eosinphils 0.1 thou/uL (0.0-0.7); #Lymphocytes 1.2 thou/uL (1.20-3.40); #Monocytes 0.6 thou/uL (0.11-0.59); %Basophils 0.7 % (0.0-1.0); %Eosinophils 1.1 % (0.0-10.0); %Lymphocytes 9.8 % (21.0-51.0); %Monocytes 5.3 % (0.0-10.0); %Neutrophils 83.1 % (42.0-75.0); Hemoglobin 6.7 g/dL (14.0-18.0); Mean Corpuscular HGB CONC 32.5 g/dL (32.0-36.0); Mean Corpuscular Hemoglobin 24.8 pg (27.0-31.0); Mean Corpuscular Volume 76.4 fL (78.0-98.0); Mean Platelet Volume 10.9 fL (7.4-10.4); Platelet Count 206 thou/uL (130-400); RBC Distribution Width 22.5 % (11.5-14.5)
[2021-05-11 11:10] LABS: Potassium 3.6 mmol/L (3.5-5.1)
[2021-05-11 13:45] LABS: SARS-CoV-2 PCR by NAA Not Detected (NotDetected)
[2021-05-11 19:50] LABS: #Basophils 0.1 thou/uL (0.0-0.2); #Eosinphils 0.1 thou/uL (0.0-0.7); #Lymphocytes 1.2 thou/uL (1.20-3.40); #Monocytes 0.6 thou/uL (0.11-0.59); %Basophils 0.4 % (0.0-1.0); %Eosinophils 0.6 % (0.0-10.0); %Lymphocytes 8.3 % (21.0-51.0); %Monocytes 4.4 % (0.0-10.0); %Neutrophils 86.3 % (42.0-75.0); Anisocytosis MODERATE=16-30 cells (100X) (0-5/hpf); Hemoglobin 8.9 g/dL (14.0-18.0); Hypochromia SLIGHT = 6-15 cells (100X) (0-5/hpf); MDiff Complete? YES; Mean Corpuscular HGB CONC 32.3 g/dL (32.0-36.0); Mean Corpuscular Hemoglobin 25.8 pg (27.0-31.0); Mean Corpuscular Volume 79.9 fL (78.0-98.0); Mean Platelet Volume 10.8 fL (7.4-10.4); Ovalocytes SLIGHT = 2-5 cells (100X) (0-1/hpf); Platelet Count 228 thou/uL (130-400); Platelet Morphology Comment Appears Adequate; Polychromasia MODERATE = 3-4 cells (100X) (0-2/hpf); RBC Distribution Width 23.1 % (11.5-14.5); Red Blood Cell (RBC) Count 3.45 mill/uL (4.70-6.10); Schistocytes SLIGHT = 2-5 cells (100X) (0-1/hpf); Target Cells SLIGHT = 2-5 cells (100X) (0-1/hpf); White Blood Cell (WBC) Count 13.9 thou/uL (4.8-10.8)
[2021-05-12] MEDS: Levothyroxine Sodium 25 MCG TAB PO SCH (05:47)
[2021-05-12 06:08] LABS: #Basophils 0.1 thou/uL (0.0-0.2); #Eosinphils 0.1 thou/uL (0.0-0.7); #Lymphocytes 1.2 thou/uL (1.20-3.40); #Monocytes 0.6 thou/uL (0.11-0.59); #Neutrophils 11.8 thou/uL (1.40-6.50); %Basophils 0.7 % (0.0-1.0); %Eosinophils 0.6 % (0.0-10.0); %Lymphocytes 8.6 % (21.0-51.0); %Monocytes 4.7 % (0.0-10.0); %Neutrophils 85.5 % (42.0-75.0); Hemoglobin 8.9 g/dL (14.0-18.0); Mean Corpuscular HGB CONC 31.8 g/dL (32.0-36.0); Mean Corpuscular Hemoglobin 25.5 pg (27.0-31.0); Mean Corpuscular Volume 80.2 fL (78.0-98.0); Mean Platelet Volume 10.8 fL (7.4-10.4); Platelet Count 240 thou/uL (130-400); RBC Distribution Width 23.1 % (11.5-14.5); Red Blood Cell (RBC) Count 3.48 mill/uL (4.70-6.10); White Blood Cell (WBC) Count 13.8 thou/uL (4.8-10.8)
[2021-05-12] MEDS: metroNIDAZOLE 500 MG in Premix Bag 1 BAG IVPB SCH (06:51)
[2021-05-12 08:29] VITALS: BP 98/57; TEMP 97.2
[2021-05-12] MEDS: Fidaxomicin 200 MG TAB PO SCH (10:39)
[2021-05-12] MEDS: Potassium Chloride 20 MEQ TAB PO SCH (10:39)
[2021-05-12] MEDS: FLUoxetine HCl 20 MG CAP PO SCH (10:39)
[2021-05-12] MEDS: Saccharomyces boulardii 250 MG CAP PO SCH (10:39)
[2021-05-12] MEDS: Apixaban 5 MG TAB PO SCH (10:39)
== END 2021-05-12 11:05 | disposition home health service (06) | DRG 871 ==
LOC: ERS 09:36 → 2NO 12:18 → ONC 04-29 20:43
PROVIDERS: ADMIT Family Medicine; ATTEND Internal Medicine
PROC: 8E0ZXY6 Isolation (ICD-10-PCS; 2021-04-25)
PROC: 30233N1 Transfusion of Nonautologous Red Blood Cells into Peripheral Vein, Percutaneous Approach (ICD-10-PCS; principal; 2021-05-06)
DX: A41.89 Other specified sepsis (principal); Z20.822 Contact with and (suspected) exposure to COVID-19; I26.99 Other pulmonary embolism without acute cor pulmonale; J18.9 Pneumonia, unspecified organism; E43 Unspecified severe protein-calorie malnutrition; D61.810 Antineoplastic chemotherapy induced pancytopenia; A04.72 Enterocolitis due to Clostridium difficile, not specified as recurrent; C15.9 Malignant neoplasm of esophagus, unspecified; C78.02 Secondary malignant neoplasm of left lung; C78.01 Secondary malignant neoplasm of right lung; E87.1 Hypo-osmolality and hyponatremia; Z68.1 Body mass index [BMI] 19.9 or less, adult; E78.5 Hyperlipidemia, unspecified; E78.00 Pure hypercholesterolemia, unspecified; E87.6 Hypokalemia; I45.81 Long QT syndrome; I10 Essential (primary) hypertension; R65.20 Severe sepsis without septic shock; E83.39 Other disorders of phosphorus metabolism; E83.42 Hypomagnesemia; F41.9 Anxiety disorder, unspecified; H54.8 Legal blindness, as defined in USA; E03.2 Hypothyroidism due to medicaments and other exogenous substances; T45.1X5A Adverse effect of antineoplastic and immunosuppressive drugs, initial encounter; E11.649 Type 2 diabetes mellitus with hypoglycemia without coma; Z79.899 Other long term (current) drug therapy; Z79.890 Hormone replacement therapy; Z98.890 Other specified postprocedural states; Z87.891 Personal history of nicotine dependence; Z80.1 Family history of malignant neoplasm of trachea, bronchus and lung; Z79.84 Long term (current) use of oral hypoglycemic drugs
CPT/HCPCS: 36415; 36416; 36430; 71275; 74178; 80048; 80053; 81003; 81015; 82533; 83036; 83525; 83605; 83735; 84100; 84132; 84443; 84484; 84681; 85007; 85025; 85027; 86850; 86900; 86901; 87040; 87045; 87046; 87081; 87086; 87324; 87427; 87449; 96365; 96366; 96367; 96368; J0692; J1447; J1642; J2405; J3370; J3475; J3480; J3490; J7030; J7050; J7070; J7120; P9016; Q9967; U0003; U0005

== ENCOUNTER 2021-05-18 17:48 | Day surgery (SDC) | payer MEDICARE, OTHER ==
[2021-05-18] MEDS ORDERED: Acetaminophen 500 MG TAB PO SCH (19:00)
[2021-05-18] MEDS ORDERED: diphenhydrAMINE 25 MG CAP PO SCH (19:00)
[2021-05-19 05:12] LABS: #Eosinphils 0.1 thou/uL (0.0-0.7); #Monocytes 0.4 thou/uL (0.11-0.59); %Basophils 0.9 % (0.0-1.0); %Eosinophils 2.6 % (0.0-10.0); %Lymphocytes 17.2 % (21.0-51.0); %Monocytes 7.8 % (0.0-10.0); %Neutrophils 71.5 % (42.0-75.0); Anisocytosis MODERATE=16-30 cells (100X) (0-5/hpf); Hemoglobin 8.3 g/dL (14.0-18.0); MDiff Complete? YES; Mean Corpuscular HGB CONC 33.6 g/dL (32.0-36.0); Mean Corpuscular Hemoglobin 27.9 pg (27.0-31.0); Mean Corpuscular Volume 83.1 fL (78.0-98.0); Mean Platelet Volume 8.7 fL (7.4-10.4); Platelet Count 277 thou/uL (130-400); Platelet Morphology Comment Appears Adequate; Polychromasia MODERATE = 3-4 cells (100X) (0-2/hpf); Red Blood Cell (RBC) Count 2.98 mill/uL (4.70-6.10); White Blood Cell (WBC) Count 5.6 thou/uL (4.8-10.8)
[2021-05-19 08:26] VITALS: BP 123/68; TEMP 98
[2021-05-19] MEDS ORDERED: Palonosetron HCl 0.25 MG in Sodium Chloride 0.9% 50 ML IVPB SCH (08:45)
[2021-05-19] MEDS ORDERED: FLUOROURACIL IVPB SCH (09:00)
[2021-05-19] MEDS ORDERED: DEXTROSE 5% IVPB SCH (09:00)
[2021-05-19] MEDS ORDERED: WATER IVPB SCH (09:00)
== END 2021-05-19 12:43 | disposition home or self-care (01) ==
LOC: ONC/OP 17:48 → ONC 17:50 → ONC/OP 05-19 12:43
PROVIDERS: ATTEND Nurse Practitioner Family
PROC: 30233N1 Transfusion of Nonautologous Red Blood Cells into Peripheral Vein, Percutaneous Approach (ICD-10-PCS; principal; 2021-05-18)
DX: D64.9 Anemia, unspecified (principal); D69.6 Thrombocytopenia, unspecified
CPT/HCPCS: 36416; 85025; 86850; 86900; 86901; J1642; P9016; Q0163